=== PATIENT | male | born 1950 | race Caucasian/White ===

== ENCOUNTER 2017-11-14 16:45 | Inpatient (IN) | payer OTHER ==
[~2017-11-14] VITALS: Ht 162.6 cm; Wt 74.3 kg
[~2017-11-14 16:45] MED LIST: ASPI-664 PO; ATOR20TA38 PO; CARV12.598 PO; Lisinopril PO; TICA90TA PO
[2017-11-14] MEDS ORDERED: FURO20TA3 PO (23:54)
--- NOTE | 2017-11-15 00:04 | RADRPT ---
PROCEDURE: XR Chest. CLINICAL INDICATION: Chest Pain. TECHNIQUE: Single frontal view of the chest was obtained. COMPARISON: 12/10/2014 FINDINGS: The cardiomediastinal silhouette is normal size. Pulmonary vasculature is within normal limits. Th ere is moderate aortic calcification. There is atelectasis or scarring at the left lung base.. No signs of pleural fluid or pneumothorax are seen. The osseous structures and soft tissues are unre markable. IMPRESSION: Moderate aortic calcification. Atelectasis or scarring at the left lung base. No focal consolidation or edema. RPTAT: HBST .Dylon Ly MD, MD Date Time Electronically viewed and signed by .Dylon Ly MD, on 11/15/2017 00:04 .T/
[2017-11-15 00:31] LABS: BASOPHILS % 0.6 % (0.0-2.0); EOSINOPHILS # 0.2 10^3/ul (0.0-0.5); EOSINOPHILS % 3.2 % (0.0-7.0); HEMATOCRIT 47.9 % (42.0-52.0); HEMOGLOBIN 16.2 g/dl (14.0-18.0); LYMPHOCYTES # 1.4 10^3/ul (0.8-2.9); LYMPHOCYTES % 27.1 % (15.0-51.0); MEAN CORPUSCULAR HEMOGLOBIN 30.6 pg (29.0-33.0); MEAN CORPUSCULAR HGB CONC 33.8 g/dl (32.0-37.0); MEAN CORPUSCULAR VOLUME 90.4 fl (82.0-101.0); MONOCYTE # 0.7 10^3/ul (0.3-0.9); MONOCYTES % 13.3 % (0.0-11.0); NEUTROPHIL # 2.8 10^3/ul (1.6-7.5); NEUTROPHILS % 55.6 % (39.0-77.0); PLATELET COUNT 217 10^3/UL (140-415); RED CELL DISTRIBUTION WIDTH 13.7 % (11.5-14.5)
[2017-11-15 00:46] LABS: ADD UMIC YES; UR ASCORBIC ACID NEGATIVE (NEGATIVE); UR BILIRUBIN (Dip) NEGATIVE (NEGATIVE); UR BLOOD (Dip) 1+ mg/dL (NEGATIVE); UR CLARITY CLEAR (CLEAR); UR COLOR YELLOW (YELLOW); UR GLUCOSE (Dip) 1+ mg/dL (NEGATIVE); UR KETONES (Dip) TRACE mg/dL (NEGATIVE); UR LEUKOCYTE ESTERASE (Dip) NEGATIVE Leu/ul (NEGATIVE); UR MUCUS FEW /HPF (NONE SEEN); UR NITRITE (Dip) NEGATIVE (NEGATIVE); UR RBC 2 /HPF (0-5); UR TOTAL PROTEIN (Dip) 3+ mg/dl (NEGATIVE); UR UROBILINOGEN (Dip) NEGATIVE (NEGATIVE)
[2017-11-15 00:55] LABS: ALBUMIN/GLOBULIN RATIO 0.62; BILIRUBIN,INDIRECT 0.3 mg/dl (0-1.1); BILIRUBIN,TOTAL 0.3 mg/dl (0.2-1.3); CREATININE 1.05 mg/dl (0.61-1.24); POTASSIUM 3.8 mmol/L (3.5-5.1); TOTAL PROTEIN 5.2 g/dl (6.1-8.1)
--- NOTE | 2017-11-15 01:13 | RADRPT ---
PROCEDURE: ULTRASOUND RETROPERITONEUM CLINICAL INDICATION: 67-year-old male with proteinuria. TECHNIQUE: Multiple sonographic images of the retroperitoneum were obtained. The images were revi ewed on a PACS workstation. COMPARISON: None. FINDINGS: The kidneys are well visualized. The right kidney measures 10.8 x 5.1 x 5.0 cm. The left kidney ted ures 12.1 x 5.8 x 5.2 cm. There is a echogenic right renal calculus measuring 5 mm. There are multip le echogenic left renal calculi with the largest measuring 6 mm. There is no evidence for obstructiv e uropathy. The bladder is without internal echoes or shadowing stones. IMPRESSION: 1. No sonographic evidence for obstructive uropathy. 2. Bilateral renal calculi. .Alexandru Garner MD, Date Time Electronically viewed and signed by .Alexandru Garner MD, MD on 11/15/2017 01:12 .M/
[2017-11-15] MEDS ORDERED: ONDANSETRON 4 MG INJ IV PRN (02:30)
[2017-11-15] MEDS ORDERED: ACETAMINOPHEN 325 MG TAB PO PRN (02:30)
--- NOTE | 2017-11-15 03:57 | ERD ---
ER Documentation Chief Complaint Chief Complaint Sent from for eval nephrotic syndrome HPI This 67-year-old male presents emergency room for significant swelling of his arms legs scrotum and abdomen going on for the last month. He previously had no renal abnormalities. He went to his PCP today who noticed protein in the urine and sent him in for rule out of nephrotic syndrome. Patient states it is harder to walk because of his swelling in his legs. Has no shortness of breath , chest pain, fevers or chills. He does not have any burning on urination. ROS All systems reviewed and are negative except as per history of present illness. Medications Home Meds Active Scripts Aspirin* (Aspirin* EC) 81 Mg Tabec, 81 MG PO DAILY for 30 Days Prov:ALLEGRA LACKEY NP 12/12/14 Carvedilol* (Coreg*) 12.5 Mg Tab, 12.5 MG PO Q12 for 30 Days HOLD FOR HR<60 AND/OR SBP<110 Prov:ALLEGRA LACKEY NP 12/12/14 Atorvastatin Calcium* (Atorvastatin Calcium*) 20 Mg Tab, 80 MG PO QHS for 30 Days Prov:ALLEGRA LACKEY NP 12/12/14 Reported Medications Furosemide* (Furosemide*) 20 Mg Tablet, 20 MG PO DAILY, #60 TAB 11/14/17 Discontinued Scripts Ticagrelor* (Brilinta*) 90 Mg Tablet, 90 MG PO BID for 30 Days Prov:ALLEGRA LACKEY NP 12/12/14 [Lisinopril] 10 MG TAB No Conflict Check, 10 MG PO DAILY for 30 Days, TAB HOLD FOR SBP<110 Prov:ALLEGRA LACKEY NP 12/12/14 Allergies Allergies: Coded Allergies: No Known Allergy (Unverified , 11/14/17) PMhx/Soc History of Surgery: Yes (heart stent, ) Anesthesia Reaction: No Hx Neurological Disorder: No Hx Respiratory Disorders: No Hx Cardiac Disorders: Yes (htn, chf, high cholesterol) Hx Psychiatric Problems: No Hx Miscellaneous Medical Probl: No Hx Alcohol Use: No Hx Substance Use: No Hx Tobacco Use: No Smoking Status: Never smoker Physical Exam Vitals Vital Signs Date Time Temp Pulse Resp B/P Pulse Ox O2 Delivery O2 Flow Rate FiO2 11/15/17 01:02 70 16 103/60 95 Room Air 11/14/17 21:26 97.4 94 16 150/93 94 Room Air 11/14/17 16:49 98.4 92 20 113/74 95 Physical Exam Const: [] Mild distress Head: Atraumatic Eyes: Normal Conjunctiva ENT: Normal External Ears, Nose and Mouth. Neck: Full range of motion..~ No meningismus. Resp: Clear to auscultation bilaterally Cardio: Regular rate and rhythm, no murmurs Abd: Soft, non tender, non distended. Normal bowel sounds Skin: No petechiae or rashes Back: No midline or flank tenderness Ext: No cyanosis, plus pitting edema bilateral lower extremities up to the level of the knee as well as pitting edema of the scrotum and penis, no tenderness of scrotum or penis. Swelling of hands. Distal pulses are intact with good capillary refill. Neur: Awake and alert oriented 3, no focal deficits Psych: Normal Mood and Affect Result Diagram: 11/14/17 2350 11/14/17 2350 Results 24 hrs Laboratory Tests Test 11/14/17 23:50 11/15/17 00:15 White Blood Count 5.010^3/ul Red Blood Count 5.3010^6/ul Hemoglobin 16.2g/dl Hematocrit 47.9% Mean Corpuscular Volume 90.4fl Mean Corpuscular Hemoglobin 30.6pg Mean Corpuscular Hemoglobin Concent 33.8g/dl Red Cell Distribution Width 13.7% Platelet Count 06177^3/UL Mean Platelet Volume 11.0fl Neutrophils % 55.6% Lymphocytes % 27.1% Monocytes % 13.3% Eosinophils % 3.2% Basophils % 0.6% Nucleated Red Blood Cells % 0.0/100WBC Neutrophils # 2.810^3/ul Lymphocytes # 1.410^3/ul Monocytes # 0.710^3/ul Eosinophils # 0.210^3/ul Basophils # 0.010^3/ul Nucleated Red Blood Cells # 0.010^3/ul Sodium Level 137mmol/L Potassium Level 3.8mmol/L Chloride Level 107mmol/L Carbon Dioxide Level 27mmol/L Anion Gap 7 Blood Urea Nitrogen 23mg/dl Creatinine 1.05mg/dl Glucose Level 163mg/dl Calcium Level 8.0mg/dl Total Bilirubin 0.3mg/dl Direct Bilirubin 0.00mg/dl Indirect Bilirubin 0.3mg/dl Aspartate Amino Transf (AST/SGOT) 24IU/L Alanine Aminotransferase (ALT/SGPT) 27IU/L Alkaline Phosphatase 164IU/L B-Type Natriuretic Peptide 146PG/ML Total Protein 5.2g/dl Albumin 2.0g/dl Globulin 3.20g/dl Albumin/Globulin Ratio 0.62 Urine Color YELLOW Urine Clarity CLEAR Urine pH 5.0 Urine Specific [place] 1.030 Urine Ketones TRACEmg/dL Urine Nitrite NEGATIVEmg/dL Urine Bilirubin NEGATIVEmg/dL Urine Urobilinogen NEGATIVEmg/dL Urine Leukocyte Esterase NEGATIVELeu/ul Urine Microscopic RBC 2/HPF Urine Microscopic WBC 3/HPF Urine Mucus FEW/HPF Urine Hemoglobin 1+mg/dL Urine Glucose 1+mg/dL Urine Total Protein 3+mg/dl Current Medications Medications (Trade) Dose Ordered Sig/Miguel Angel Route PRN Reason Start Time Stop Time Status Last Admin Dose Admin Ondansetron HCl (Zofran Inj) 4 mg BRIDGE ORDER PRN IV NAUSEA AND/OR VOMITING 11/15/17 02:30 11/16/17 02:29 Acetaminophen (Tylenol Tab) 650 mg ER BRIDGE PRN PO MILD PAIN/FEVER 11/15/17 02:30 11/16/17 02:29 Procedures/MDM Elderly male with new onset nephrotic syndrome with no evidence of infection. He also has severe protein protein calorie malnutrition as a result of albumin loss in his urine. Evidence of renal failure or congestive heart failure. So has limited mobility secondary to severe pitting edema. Bilateral renal ultrasound does not reveal any pathology. Patient will need to be admitted for nephrology workup for underlying cause of nephrotic syndrome and treatment as his albumin is very low and he will continue to third space fluids this condition will continue to worsen. Spoke with Dr. Fox will be admitting him to the medical surgical floor for this evaluation. EKG interpretation: Normal sinus rhythm rate of 81, normal axis, no ST or T- wave changes concerning for acute ischemia, normal intervals. Normal EKG X-ray interpretation: I see no acute process, I see no pulmonary edema, no infiltrates, pneumothorax, no fractures. Renal ultrasound interpretation: Renal calculi without hydronephrosis or evidence of obstruction, no abnormalities in appearance of renal parenchyma that I can see. Departure Diagnosis: Primary Impression: Nephrotic syndrome Additional Impressions: Severe protein-calorie malnutrition Anasarca Condition: Serious JOSHUATKMARIAAASIF OZUNA Nov 15, 2017 03:57
[2017-11-15] MEDS ORDERED: FUROSEMIDE 40 MG INJ IV ONE (04:30)
[2017-11-15] MEDS ORDERED: NACL 0.9% 3 ML SYG IV SCH (04:30)
[2017-11-15 05:42] LABS: HAAIG REFLEX REFLEX FILED
[2017-11-15 06:22] LABS: URIC ACID 5.9 mg/dl (3.1-7.9)
[2017-11-15 07:06] LABS: HEPATITIS B CORE ANTIBODY REACTIVE (NEGATIVE)
--- NOTE | 2017-11-15 07:16 | RADRPT ---
PROCEDURE: US Abdomen (right upper quadrant). CLINICAL INDICATION: Elevated liver enzymes TECHNIQUE: Multiple real-time longitudinal and transverse images of the right upper quadrant of th e abdomen were acquired utilizing a curved array transducer. Images were reviewed on a high-resoluti on PACS workstation. COMPARISON: US ABDOMEN 11/15/2017 FINDINGS: The liver is normal in size and echogenicity without focal mass or intrahepatic biliary dilatation. There is normal hepatopedal flow within the main portal vein. The gallbladder is normal. There is no pericholecystic fluid or gallbladder wall thickening or gallstones. No intra or extrahepatic lilia iary dilatation is seen. The common bile duct measures 4.1 mm in maximal dimension. The pancreas i s not well visualized. No free fluid is identified. The right kidney measures 10.2 cm in length. There is normal echogenicity within the right kidney. There is mild hydronephrosis. Two calculi are again demonstrated, the larger measuring 5 mm. IMPRESSION: Right renal calculi and mild hydronephrosis. Normal sonographic appearance of the liver. RPTAT: HCNS Physician Brittany Date Time Electronically viewed and signed by Physician Brittany on 11/15/2017 07:15 /
--- NOTE | 2017-11-15 09:58 | HP ---
Date/Time of Note Date/Time of Note DATE: 11/15/17 TIME: 09:50 Assessment/Plan VTE Prophylaxis VTE Prophylaxis Intervention: SCD's Lines/Catheters [facility] Saline Lock Assessment/Plan Chief Complaint/Hosp Course This is a 67-year-old male being [facility] floor for: #1 diffuse nonpitting edema: While creatinine is within normal values urinalysis does show 3+ protein. Which is concerning for possible nephrotic syndrome. At the current time will order renal ultrasound. Will order urine studies. Will check a NILDA, will check hepatitis panel. Will order urine microscope. Will also check an echocardiogram in the setting of the patient having a mildly elevated BNP. Will consult nephrology, consider cardiology if indicated. Will give a dose of Lasix 40 Iv 1. Will monitor urine output, will check a cortisol level #2 Elevated BNP: Patient has a mildly elevated BNP level, will check an echocardiogram as per 1. Patient does not have any shortness of breath at this time. #3 elevated alkaline phosphatase: Patient denies any right upper quadrant pain. Will check right upper quadrant ultrasound. Will check a GGT level, will check a hepatitis panel. #4 coronary artery disease: Patient has a history of NC status post stent. Will continue aspirin/statin/carvedilol. #5 hypertension: Patient currently is not on any blood pressure medications. He was previously on lisinopril however patient did not tolerate this medication well. Will continue monitor blood pressures #6 DVT GI prophylaxis: SCDs, no GI prophylaxis indicated Further treatment strategy will be provided as per the clinical course Problems: HPI/ROS Admit Date/Time Admit Date/Time Hx of Present Illness Chief complaint: Swelling of the bilateral hands and feet and scrotum This 67-year-old male presents emergency room for significant swelling of his arms legs scrotum and abdomen going on for the last month. He previously had no renal abnormalities. He went to his PCP today who noticed protein in the urine and sent him in for rule out of nephrotic syndrome. Patient states it is harder to walk because of his swelling in his legs. Has no shortness of breath , chest pain, fevers or chills. He does not have any burning on urination. He was started on Lasix by his primary care doctor however he has not noticed any improvement with that. He is still able to urinate. He does report that he was started on lisinopril in the past however he did not tolerate the medication well and therefore is not taking it at this time. Allergies: NKDA Medications: See PACHECO MUSTAFA Const: As per HPI Eyes : No pain discharge or redness or change in visual acuity ENT: No pain, sore throat, congestion, congestion, dysphagia or discharge Respiratory: No shortness of breath, cough, sputum, wheezing, or pleuritic pain Cardiovascular: No chest pain, palpitation, PND, or edema GI : no change in appetite, abdominal pain, nausea, vomiting, diarrhea, constipation, or change in the color his stool Genitourinary: As per HPI Musculoskeletal: No joint pain, back pain, neck pain, restricted range of motion in neck or joints Skin: Per HPI Neuro: No headache, dizziness, syncope, seizure, focal weakness Endocrine: No polyuria, polydipsia, temperature intolerance Psych: No hallucination, depression, anxiety or suicidal ideation PMH/Family/Social Past Medical History Coronary artery disease, NC, hypertension Past Surgical History History of cardiac stent 1 Family History Significant Family History: no pertinent family hx Social History Alcohol Use: none Smoking Status: Never smoker Drug Use: marijuana Exam/Review of Systems Vital Signs Vitals Vital Signs Date Time Temp Pulse Resp B/P Pulse Ox O2 Delivery O2 Flow Rate FiO2 11/15/17 09:00 98.3 74 20 118/74 98 Room Air Exam Exam General: She is lying comfortably in bed in no acute distress HEENT: Atraumatic, normocephalic. The pupils are equal, round and reactive. Extraocular motor are intact Neck: Supple with full range of motion. No rigidity or meningismus Chest: Nontender Lungs: Clear to auscultation bilaterally no crackles rales or wheezing Heart: Normal S1-S2, Regular rhythm and rate. No murmur, S3, or S4 Abdomen: Soft , nontender, nondistended , bowel sounds are present. No guarding no rebound tenderness , No masses or organomegaly. No costovertebral temporal angle mass Genitourinary: Scrotal and penile swelling Extremities: Nonpitting edema of the bilateral hands, of the bilateral feet to the level of the zelaya Neurologic: Normal mental status, speech normal, cranial nerves II through XII are intact, motor and sensory are intact, no focal weakness Skin: Nonpitting edema of the bilateral hands, of the bilateral feet, of the penis and scrotum Additional Comments PROCEDURE: XR Chest. CLINICAL INDICATION: Chest Pain. TECHNIQUE: Single frontal view of the chest was obtained. COMPARISON: 12/10/2014 FINDINGS: The cardiomediastinal silhouette is normal size. Pulmonary vasculature is within normal limits. There is moderate aortic calcification. There is atelectasis or scarring at the left lung base.. No signs of pleural fluid or pneumothorax are seen. The osseous structures and soft tissues are unremarkable. IMPRESSION: Moderate aortic calcification. Atelectasis or scarring at the left lung base. No focal consolidation or edema. RPTAT: HBST .Dylon Ly MD, Date Time Electronically viewed and signed by .Dylon Ly MD, MD on 11/15/2017 00:04 .T/ CC: MARIAA LEWIS DO PROCEDURE: ULTRASOUND RETROPERITONEUM CLINICAL INDICATION: 67-year-old male with proteinuria. TECHNIQUE: Multiple sonographic images of the retroperitoneum were obtained. The images were reviewed on a PACS workstation. COMPARISON: None. FINDINGS: The kidneys are well visualized. The right kidney measures 10.8 x 5.1 x 5.0 cm. The left kidney measures 12.1 x 5.8 x 5.2 cm. There is a echogenic right renal calculus measuring 5 mm. There are multiple echogenic left renal calculi with the largest measuring 6 mm. There is no evidence for obstructive uropathy. The bladder is without internal echoes or shadowing stones. IMPRESSION: 1. No sonographic evidence for obstructive uropathy. 2. Bilateral renal calculi. .Alexandru Garner MD, Date Time Electronically viewed and signed by .Alexandru Garner MD, MD on 11/15/2017 01:12 .M/ CC: MARIAA LEWIS DO Labs Result Diagram: 11/14/17234911/14/17 235 Medications Medications Current Medications Acetaminophen (Tylenol Tab) 650 mg Q6H PRN PO PAIN LEVEL 1-3 OR FEVER; Start 11/15/17 at 04:30 MARIA GUADALUPE SOLER Nov 15, 2017 09:58
[2017-11-15 11:30] VITALS: TEMP 98.3
[2017-11-15 11:57] VITALS: BP 132/74; PULSE 77; RESP 12; Ht 162.6 cm; Wt 74.3 kg
[2017-11-15] MEDS: ACETAMINOPHEN 325 MG TAB PO PRN (15:05)
--- NOTE | 2017-11-15 15:28 | CONS ---
DATE OF ADMISSION: 11/15/2017 DATE OF CONSULTATION: 11/15/2017 TYPE OF CONSULTATION: Nephrology. REASON FOR CONSULTATION: Volume overloaded, proteinuria, evaluate for possible nephrotic syndrome. HISTORY OF PRESENT ILLNESS: This is a 67-year-old male with a past medical history of hypertension, history of dyslipidemia, history of CHF, history of coronary artery disease, who presents to [facility] for evaluation of worsening lower extremity edema. The patient stated that h is symptoms began approximately 1 month ago when he started having noted swelling. The patient was seen by his primary care physician, who was concerned for possible nephrotic syndrome and recommende d the patient come to the emergency room. Upon arrival to the emergency room, the patient had labor atory data drawn, which showed urinalysis, +3 proteinuria. The patient also had a BUN of 23, creati nine 1.05. In the emergency room, the patient was given diuretic therapy. In terms of the patient's renal history, the patient states that he has had normal renal function, h as had no prior history of swelling. The patient states that he may have developed a rash approxima tely 1 month ago. He denies any NSAID use. Denies any gross hematuria, any hemoptysis. The patien t also states that he was noted to have frothy urine over the past several weeks. PAST MEDICAL HISTORY: As stated above, history of coronary artery disease, history of CHF, history of hypertension. PAST SURGICAL HISTORY: Status post cardiac catheterization. FAMILY HISTORY: Noncontributory. SOCIAL HISTORY: Does not drink, smoke, or do drugs. OUTPATIENT MEDICATIONS: Reviewed. REVIEW OF SYSTEMS: A 14-point review of systems was conducted. Pertinent positives stated in HPI, otherwise negative. PHYSICAL EXAMINATION: VITAL SIGNS: Blood pressure is 115/73, respiration is 16, pulse 77, temperature 97.4. HEENT: Head is normocephalic. NECK: Supple. HEART: Regular rate. LUNGS: Show diminished breath sounds at base. ABDOMEN: Soft, nontender to palpation without rebound or guarding. EXTREMITIES: Negative for clubbing, cyanosis. Positive edema bilaterally. Diffuse anasarca. DERMATOLOGIC: No rashes. MUSCULOSKELETAL: No joint effusions. NEUROLOGIC: No focal deficits. LABORATORY DATA: Shows sodium 137, potassium 3.8, chloride 107, BUN 23. White count 5.0, hemoglobi n 16.2, platelet count 217. IMAGING STUDIES: The patient's renal ultrasound shows no evidence of obstructive uropathy. Bilater al renal calculi noted. Liver ultrasound shows normal appearance of the liver. ASSESSMENT AND PLAN: This is a 67-year-old male who presents with: 1. Volume overload, anasarca. Etiology is unclear. Differential is broad, including decompensated congestive heart failure. The possibility of nephrotic syndrome is a consideration. Plan at this p oint is to do a full evaluation by checking a UA with microanalysis. Will quantify the patient's pr oteinuria by checking a protein/creatinine ratio and albumin/creatinine ratio. We will also check a n SPEP, UPEP, immunofixation. Agree with diuretic therapy. Monitor renal function closely. If the patient does have evidence of nephrotic range proteinuria, possibilities such as a primary FSGS, me mbranous nephropathy, MPGN will all be considerations. The patient may also require a renal biopsy if the serological data and proteinuria are consistent with nephrotic syndrome. Will monitor closel y with you. 2. History of congestive heart failure. The patient may have underlying exacerbation. Will check a 2D echo. Continue diuretic therapy. 3. Coronary artery disease. Continue medical management. 4. Hypertension. Continue current blood pressure regimen. 5. Dyslipidemia. Continue statin therapy. Thank you, Dr. Soler, for this interesting consultation. It will be a pleasure to follow patient with you throughout the hospital course. Dictated By: MAEGAN BLACK DO NR/NTS Conf#: [id number] DID#: [id number] CC: MARIA GUADALUPE SOLER MD;*EndCC*
[2017-11-15 16:02] LABS: ADD UMIC YES; UR ASCORBIC ACID NEGATIVE (NEGATIVE); UR BACTERIA FEW /HPF (NONE SEEN); UR BILIRUBIN (Dip) NEGATIVE (NEGATIVE); UR BLOOD (Dip) NEGATIVE (NEGATIVE); UR CLARITY SLIGHTLY CLOUDY (CLEAR); UR COLOR YELLOW (YELLOW); UR GLUCOSE (Dip) NEGATIVE (NEGATIVE); UR KETONES (Dip) NEGATIVE (NEGATIVE); UR LEUKOCYTE ESTERASE (Dip) NEGATIVE Leu/ul (NEGATIVE); UR MUCUS FEW /HPF (NONE SEEN); UR NITRITE (Dip) NEGATIVE (NEGATIVE); UR RBC 2 /HPF (0-5); UR SPECIFIC GRAVITY (Dip) 1.018 (1.003-1.030); UR TOTAL PROTEIN (Dip) 3+ mg/dl (NEGATIVE); UR UROBILINOGEN (Dip) 1+ mg/dL (NEGATIVE)
--- NOTE | 2017-11-15 16:18 | PN ---
Date/Time of Note Date/Time of Note DATE: 11/15/17 TIME: 16:10 Assessment/Plan VTE Prophylaxis VTE Prophylaxis Intervention: SCD's Lines/Catheters IV Catheter Type (from Nrsg): Saline Lock Assessment/Plan Assessment/Plan 67 yo M with hx HTN presents with anasarca, proteinuria. etio unclear. also unclear if proteinuria nephrotic range or not at this time PLAN appreciate renal assistance. urine protein/creatinine pending renal imaging and liver imaging unremarkable will check LE dopplers to r/o DVT though unlikely cont lasix reasonable to cont home asa, statin, bb agree with TTE Subjective 24 Hr Interval Summary Free Text/Dictation wants to know when he can go home. states he's been swollen for 4 weeks. doesnt think his urine has been foamy Exam/Review of Systems Vital Signs Vitals Vital Signs Date Time Temp Pulse Resp B/P Pulse Ox O2 Delivery O2 Flow Rate FiO2 11/15/17 11:57 97.8 77 12 132/74 96 Room Air Exam nad no mrg lungs clear anteriorly abd soft no rashes +edema labs noted, +proteinuria with nl Cr, hgb ok, HepC neg, HepB cw previous most likely clear infection Results Result Diagram: 11/14/17 2350 11/14/17 2350 Results 24 hrs Laboratory Tests Test 11/14/17 23:50 11/15/17 00:15 11/15/17 05:31 11/15/17 05:32 White Blood Count 5.0 # Red Blood Count 5.30 Hemoglobin 16.2 Hematocrit 47.9 Mean Corpuscular Volume 90.4 Mean Corpuscular Hemoglobin 30.6 Mean Corpuscular Hemoglobin Concent 33.8 Red Cell Distribution Width 13.7 Platelet Count 217 Mean Platelet Volume 11.0 #H Neutrophils % 55.6 Lymphocytes % 27.1 Monocytes % 13.3 H Eosinophils % 3.2 Basophils % 0.6 Nucleated Red Blood Cells % 0.0 Neutrophils # 2.8 Lymphocytes # 1.4 Monocytes # 0.7 Eosinophils # 0.2 Basophils # 0.0 Nucleated Red Blood Cells # 0.0 Sodium Level 137 Potassium Level 3.8 Chloride Level 107 Carbon Dioxide Level 27 Anion Gap 7 L Blood Urea Nitrogen 23 H Creatinine 1.05 Glucose Level 163 Calcium Level 8.0 L Total Bilirubin 0.3 Direct Bilirubin 0.00 Indirect Bilirubin 0.3 Aspartate Amino Transf (AST/SGOT) 24 Alanine Aminotransferase (ALT/SGPT) 27 Alkaline Phosphatase 164 H B-Type Natriuretic Peptide 146 H Total Protein 5.2 L Albumin 2.0 L Globulin 3.20 Albumin/Globulin Ratio 0.62 Urine Color YELLOW Urine Clarity CLEAR Urine pH 5.0 Urine Specific [place] 1.030 Urine Ketones TRACE A Urine Nitrite NEGATIVE Urine Bilirubin NEGATIVE Urine Urobilinogen NEGATIVE Urine Leukocyte Esterase NEGATIVE Urine Microscopic RBC 2 Urine Microscopic WBC 3 Urine Mucus FEW A Urine Hemoglobin 1+ H Urine Glucose 1+ H Urine Total Protein 3+ H Hepatitis B Surface Antibody POSITIVE H Uric Acid 5.9 Gamma Glutamyl Transpeptidase 52 H Random Cortisol 5.1 Hepatitis B Surface Antigen NEGATIVE Hepatitis B Core Total Antibody REACTIVE H Hepatitis C Antibody NEGATIVE Test 11/15/17 15:03 Urine Color YELLOW Urine Clarity SLIGHTLY CLOUDY A Urine pH 7.0 Urine Specific [place] 1.018 Urine Ketones NEGATIVE Urine Nitrite NEGATIVE Urine Bilirubin NEGATIVE Urine Urobilinogen 1+ H Urine Leukocyte Esterase NEGATIVE Urine Microscopic RBC 2 Urine Microscopic WBC 4 Urine Bacteria FEW A Urine Mucus FEW A Urine Hemoglobin NEGATIVE Urine Glucose NEGATIVE Urine Total Protein 3+ H Medications Medications Current Medications Acetaminophen (Tylenol Tab) 650 mg Q6H PRN PO PAIN LEVEL 1-3 OR FEVER Last administered on 11/15/17t 15:05; Admin Dose 650 MG; Start 11/15/17 at 04:30 Aspirin (Halfprin) 81 mg DAILY PO ; Start 11/16/17 at 09:00 Atorvastatin Calcium (Lipitor) 80 mg QHS PO ; Start 11/15/17 at 21:00 Carvedilol (Coreg) 12.5 mg Q12 PO ; Start 11/15/17 at 21:00 APPLE SAMANIEGO MD Nov 15, 2017 16:18
[2017-11-15 19:14] VITALS: BP 107/66; PULSE 77; RESP 12
[2017-11-15] MEDS: ATORVASTATIN 80 MG TAB PO SCH (21:00)
[2017-11-15 21:22] VITALS: BP 112/71; PULSE 77; RESP 12
[2017-11-15 23:00] VITALS: BP 118/75; RESP 18
[2017-11-16 02:07] VITALS: BP 104/63; RESP 18
[2017-11-16 06:38] LABS: BASOPHILS % 0.7 % (0.0-2.0); EOSINOPHILS # 0.2 10^3/ul (0.0-0.5); EOSINOPHILS % 4.7 % (0.0-7.0); HEMATOCRIT 44.4 % (42.0-52.0); HEMOGLOBIN 14.7 g/dl (14.0-18.0); LYMPHOCYTES # 1.1 10^3/ul (0.8-2.9); LYMPHOCYTES % 23.7 % (15.0-51.0); MEAN CORPUSCULAR HEMOGLOBIN 30.7 pg (29.0-33.0); MEAN CORPUSCULAR HGB CONC 33.1 g/dl (32.0-37.0); MEAN CORPUSCULAR VOLUME 92.7 fl (82.0-101.0); MEAN PLATELET VOLUME 10.8 fl (7.4-10.4); MONOCYTE # 0.6 10^3/ul (0.3-0.9); MONOCYTES % 12.2 % (0.0-11.0); NEUTROPHIL # 2.7 10^3/ul (1.6-7.5); NEUTROPHILS % 58.7 % (39.0-77.0); PLATELET COUNT 189 10^3/UL (140-415); RED BLOOD COUNT 4.79 10^6/ul (4.70-6.10); RED CELL DISTRIBUTION WIDTH 13.7 % (11.5-14.5); WHITE BLOOD COUNT 4.5 10^3/ul (4.8-10.8)
[2017-11-16 06:49] LABS: ALBUMIN 1.5 g/dl (3.3-4.9); ALBUMIN/GLOBULIN RATIO 0.62; BILIRUBIN,INDIRECT 0.2 mg/dl (0-1.1); BILIRUBIN,TOTAL 0.2 mg/dl (0.2-1.3); CALCIUM 7.5 mg/dl (8.4-10.2); CHOL/HDL RATIO 7.8 RATIO; CREATININE 1.01 mg/dl (0.61-1.24); MAGNESIUM 1.9 mg/dl (1.7-2.5); PHOSPHORUS 3.6 mg/dl (2.5-4.9); POTASSIUM 4.3 mmol/L (3.5-5.1); TOTAL PROTEIN 3.9 g/dl (6.1-8.1)
[2017-11-16 07:18] LABS: THYROID STIMULATING HORMONE 2.07 MIU/L (0.465-4.680)
[2017-11-16 07:28] VITALS: BP 107/71; RESP 16
--- NOTE | 2017-11-16 07:31 | RADRPT ---
PROCEDURE: Ultrasound of the bilateral lower extremity venous system. CLINICAL INDICATION: Bilateral leg pain and swelling, deep venous thrombosis TECHNIQUE: Schultz scale with and without compression, color doppler, spectral doppler of the venous system of the bilateral lower extremities was performed. Venous augmentation maneuvers were utilized . COMPARISON: No prior studies are available for comparison. FINDINGS: Right: Common femoral vein: Patent. Femoral vein: Patent. Popliteal vein: Patent. Calf veins: Patent. No soft tissue abnormalities are identified. Left: Common femoral vein: Patent. Femoral vein: Patent. Popliteal vein: Patent. Calf veins: Patent. No soft tissue abnormalities are identified. IMPRESSION: No evidence of a deep vein thrombosis within the bilateral lower extremities. RPTAT: AADD .Julio Ruby MD, MD Date Time Electronically viewed and signed by .Julio Ruby MD, on 11/16/2017 07:30 .B/
[2017-11-16] MEDS: FUROSEMIDE 20 MG INJ IV SCH ×2 (09:54→17:40)
[2017-11-16] MEDS: ASPIRIN (EC) 81 MG TAB PO SCH (09:55)
--- NOTE | 2017-11-16 13:39 | PN ---
DATE: 11/16/2017 SUBJECTIVE: The patient is stable. No events overnight. No fevers, chills, nausea, vomiting. Ple ase note I spoke with the patient this morning, discussing the possibility of renal biopsy if the pa tient shows to have nephrotic range proteinuria. Patient voiced understanding. OBJECTIVE: VITAL SIGNS: Blood pressure is 107/71, respirations 16, pulse 74, temperature 97.9. HEENT: Head is normocephalic. NECK: Supple. HEART: Regular rate. LUNGS: Show diminished breath sounds at the base. ABDOMEN: Soft, nontender to palpation without rebound or guarding. EXTREMITIES: Negative for clubbing, cyanosis. Positive edema. DERMATOLOGIC: No rashes. MUSCULOSKELETAL: No joint effusions. NEUROLOGIC: No change in exam. MEDICATIONS: The patient's medications have been reviewed. LABORATORY DATA: Shows sodium 138, potassium 4.3, chloride 107, BUN 29. White count 4.5. The patie nt's urinalysis shows a few bacteria, no hematuria, no pyuria. The patient has a FENa of greater th an 1%. Unable to calculate protein creatinine ratio. The patient's ultrasound of lower extremity s hows no DVT. Renal ultrasound shows no evidence of obstructive uropathy. ASSESSMENT AND PLAN: 1. Volume overload, anasarca. Etiology is concerning for possible nephrotic syndrome. The patient 's spot protein creatinine ratio was unable to be calculated due to underlying proteinuria. Plan is to check a 24-hour urine protein. The patient likely has significant proteinuria. Given the high likelihood the patient has nephrotic range proteinuria, a possibility of a primary FSGS membranous n ephropathy or MPGN are considerations. A serological workup is ongoing. The patient may also requi re a renal biopsy if proteinuria findings are consistent with nephrotic syndrome. Will monitor clos blessing with you. Continue current diuretic regimen. 2. History of congestive heart failure. Continue current medical management. Follow up with 2D ec ho. Consider cardiology evaluation. 3. Coronary artery disease. Continue medical management. 4. Hypertension. Continue current blood pressure regimen. 5. Dyslipidemia. Continue statin therapy. Dictated By: MAEGAN BLACK DO NR/NTS Conf#: [id number] DID#: [id number] CC: MARIA GUADALUPE SOLER MD;*EndCC*
[2017-11-16] MEDS: ACETAMINOPHEN 325 MG TAB PO PRN (13:50)
--- NOTE | 2017-11-16 14:07 | PN ---
Date/Time of Note Date/Time of Note DATE: 11/16/17 TIME: 13:57 Assessment/Plan VTE Prophylaxis VTE Prophylaxis Intervention: SCD's Lines/Catheters [facility] Saline Lock Assessment/Plan Assessment/Plan 67 yo M with hx HTN presents with anasarca, proteinuria. etio unclear. Spot urine p/c consistent with nephrotic range proteinuria PLAN appreciate renal assistance. 24 hour urine collection pending. renal biopsy will likely be needed to make diagnosis check HIV status. HepB seros consistent with previous infection with clearance. Defer NILDA testing to nephrology. cont lasix reasonable to cont home asa, statin, bb await TTE results Subjective 24 Hr Interval Summary Free Text/Dictation feels ok Exam/Review of Systems Vital Signs Vitals Vital Signs Date Time Temp Pulse Resp B/P Pulse Ox O2 Delivery O2 Flow Rate FiO2 11/16/17 07:28 97.9 74 16 107/71 94 11/15/17 21:22 Room Air Intake and Output 11/15/17 11/15/17 11/16/17 15:00 23:00 07:00 Intake Total 500 ml Output Total 200 ml Balance 300 ml Exam nad no mrg lungs clear abd soft no rashes edema of hands/LEs still present a1c 6.1 urine p/c ratio ~10! Results Result Diagram: 11/16/1730 11/16/17 0531 Results 24 hrs Laboratory Tests Test 11/15/17 15:03 11/15/17 15:06 11/16/17 05:30 11/16/17 05:31 Urine Color YELLOW Urine Clarity SLIGHTLY CLOUDY A Urine pH 7.0 Urine Specific [place] 1.018 Urine Ketones NEGATIVE Urine Nitrite NEGATIVE Urine Bilirubin NEGATIVE Urine Urobilinogen 1+ H Urine Leukocyte Esterase NEGATIVE Urine Microscopic RBC 2 Urine Microscopic WBC 4 Urine Bacteria FEW A Urine Mucus FEW A Urine Hemoglobin NEGATIVE Urine Glucose NEGATIVE Urine Total Protein 3+ H Urine Random Creatinine 96.06 Urine Random Sodium 158 H White Blood Count 4.5 L Red Blood Count 4.79 Hemoglobin 14.7 Hematocrit 44.4 Mean Corpuscular Volume 92.7 Mean Corpuscular Hemoglobin 30.7 Mean Corpuscular Hemoglobin Concent 33.1 Red Cell Distribution Width 13.7 Platelet Count 189 Mean Platelet Volume 10.8 H Neutrophils % 58.7 Lymphocytes % 23.7 Monocytes % 12.2 H Eosinophils % 4.7 Basophils % 0.7 Nucleated Red Blood Cells % 0.0 Neutrophils # 2.7 Lymphocytes # 1.1 Monocytes # 0.6 Eosinophils # 0.2 Basophils # 0.0 Nucleated Red Blood Cells # 0.0 Hemoglobin A1c 6.3 H Sodium Level 138 Potassium Level 4.3 Chloride Level 107 Carbon Dioxide Level 31 Anion Gap 4 L Blood Urea Nitrogen 29 H Creatinine 1.01 Glucose Level 117 # Calcium Level 7.5 L Phosphorus Level 3.6 Magnesium Level 1.9 Total Bilirubin 0.2 Direct Bilirubin 0.00 Indirect Bilirubin 0.2 Aspartate Amino Transf (AST/SGOT) 25 Alanine Aminotransferase (ALT/SGPT) 35 Alkaline Phosphatase 122 H Total Protein 3.9 #L Albumin 1.5 L Globulin 2.40 Albumin/Globulin Ratio 0.62 Triglycerides Level 111 Cholesterol Level 242 H LDL Cholesterol, Calculated 189 HDL Cholesterol 31 Cholesterol/HDL Ratio 7.8 Thyroid Stimulating Hormone (TSH) 2.070 Medications Medications Current Medications Acetaminophen (Tylenol Tab) 650 mg Q6H PRN PO PAIN LEVEL 1-3 OR FEVER Last administered on 11/16/17 13:50; Admin Dose 650 MG; Start 11/15/17 at 04:30 Aspirin (Halfprin) 81 mg DAILY PO Last administered on 11/16/17 09:55; Admin Dose 81 MG; Start 11/16/17 at 09:00 Atorvastatin Calcium (Lipitor) 80 mg QHS PO ; Start 11/15/17 at 21:00 Carvedilol (Coreg) 12.5 mg Q12 PO Last administered on 11/16/17 09:55; Admin Dose 12.5 MG; Start 11/15/17 at 21:00 APPLE SAMANIEGO MD Nov 16, 2017 14:07
[2017-11-16 14:18] VITALS: BP 102/66; RESP 18
[2017-11-16] MEDS: ATORVASTATIN 80 MG TAB PO SCH (20:22)
[2017-11-16 20:37] VITALS: BP 104/63; RESP 20
[2017-11-16 22:54] LABS: HAAIG REFLEX REFLEX FILED
[2017-11-16 23:31] LABS: COMPLEMENT C4 27 mg/dl (14-44)
[2017-11-17 00:13] LABS: HEPATITIS B CORE ANTIBODY REACTIVE (NEGATIVE)
[2017-11-17 00:50] LABS: COMPLEMENT C3 116 mg/dl (88-165)
[2017-11-17 02:00] VITALS: BP 111/60; RESP 20
[2017-11-17] MEDS: FUROSEMIDE 20 MG INJ IV SCH ×2 (05:27→17:39)
[2017-11-17 07:30] VITALS: BP 107/66; RESP 20
[2017-11-17] MEDS: ASPIRIN (EC) 81 MG TAB PO SCH (07:42)
--- NOTE | 2017-11-17 11:14 | PN ---
DATE: 11/17/2017 SUBJECTIVE: The patient is stable. Urinary output has been good. The patient is currently is on a 24-hour urine collection. Please note, I did discuss with the patient the possibility of a kidney biopsy due expected nephrotic syndrome. The patient agrees. No other events noted. OBJECTIVE: VITAL SIGNS: Blood pressure is 107/66, respirations 20, pulse 73, temperature 97.9. HEENT: Head is normocephalic. NECK: Supple. HEART: Regular rate. LUNGS: Show diminished breath sounds at the base. ABDOMEN: Soft, nontender to palpation. No rebound or guarding. EXTREMITIES: Negative for clubbing, cyanosis. Positive edema. DERMATOLOGIC: No rashes. MUSCULOSKELETAL: No joint effusion. NEUROLOGIC: No change in exam. MEDICATIONS: The patient's medications have been reviewed. LABORATORY DATA: Shows sodium 138, potassium 4.3, chloride 107, BUN 29, creatinine 1.01, calcium 7. 5. White count 12.5, hemoglobin 14.7, platelet count is 189. Patient's complements within normal l imits. The patient's hepatitis C antibody is negative. Hepatitis B antigen is negative. ASSESSMENT AND PLAN: 1. Nephrotic syndrome. The patient has nephrotic range proteinuria on a spot protein to creatinine ratio. The patient is hypoalbuminemic and has significant edema consistent with nephrotic syndrome . Underlying etiology is unclear, concerning for a primary glomerulopathy such as membranous nephro sergio, focal segmental glomerulosclerosis primary, membranoproliferative glomerulonephritis. Other possibilities including amyloidosis are in consideration. Plan at this point is for a renal biopsy. The patient is currently receiving a 24-hour urine collection. We will also continue current diur etic regimen and adjust medications as needed. Monitor renal function closely. 2. History of congestive heart failure. Will continue medical management and follow up 2D echo. 3. Coronary artery disease. Continue medical management. 4. Hypertension. Continue current blood pressure regimen. 5. Dyslipidemia. Continue statin therapy. 6. Gastrointestinal and deep vein thrombosis prophylaxis. Dictated By: MAEGAN BLACK DO NR/NTS Conf#: [id number] DID#: [id number] CC: MARIA GUADALUPE SOLER MD;*EndCC*
[2017-11-17 13:13] VITALS: BP 101/67; RESP 20
[2017-11-17 13:36] LABS: SCRET 1.01 mg/dl (0.61-1.24)
--- NOTE | 2017-11-17 15:31 | RADRPT ---
Echocardiogram Report Patient Name: LINDSEY HOUSER Gender: Male Date: 1950 Study Date: 16-Nov-2017 [employer] Technician: ANN MARIE Location: 602 Ref. Physician: MARIA GUADALUPE SOLER Quality: Good Procedures: Transthoracic echocardiogram with complete 2D, M-Mode, and doppler examination. Indications: Edema. 2D/M Mode Doppler Measurement Value Normal Ranges Measurement Value Normal Ranges AoR Diam MM 3.1 cm ARUN Vmax 2.6 cm2 LA/Ao MM 1.3 AV Mean Juan Ramon 0.7 m/sec LA Dimen MM 4.0 cm AV Mean PG 2.0 mmHg LVIDd 2D 4.3 3.5 - 5.6 cm AV Peak Juan Ramon 1.0 m/sec LVIDs 2D 3.1 2.1 - 4.1 cm AV Peak PG 4.0 mmHg FS 2D 28.2 % AV VTI 18.0 cm LVPWd 2D 1.0 0.6 - 1.1 cm LVOT Peak Juan Ramon 0.9 m/sec IVSd 2D 0.9 0.6 - 1.1 cm LVOT Peak PG 3.0 mmHg IVS/LVPW 2D 1.0 MV E Peak Juan Ramon 0.7 m/sec EDV 2D 77.3 cm3 MV A Peak Juan Ramon 0.8 m/sec ESV 2D 28.7 cm3 MV E/A 0.8 EF 2D 55.0 50.0 - 65.0 % MV Decel Time 183 msec LVOT Diam 1.9 cm MV E/A 0.8 LVOT Area 2.8 cm2 MR Peak PG 52.0 mmHg MR Peak Juan Ramon 3.6 m/sec TR Peak Juan Ramon 2.3 m/sec TR Peak PG 22.0 mmHg RVSP 25.0 mmHg RA Pressure 3.0 Findings Left Ventricle: Lower limits of normal systolic function. Normal left ventricular cavity size. Normal left ventricular wall thickness. Ejection fraction is visually estimated at 5055 %. Tissue Doppler/Mitral Doppler indices are consistent with impaired relaxation (Stage I diastolic dysfunction). Right Ventricle: Normal right ventricular size. Normal right ventricular systolic function. Left Atrium: Upper limit of normal left atrial size. Right Atrium: The right atrium is normal in size. Mitral Valve: Normal appearance of the mitral valve. There is trace to mild mitral valve regurgitation. Aortic Valve: Normal appearance of the aortic valve. No significant aortic stenosis with trivial insufficiency. Tricuspid Valve: Normal appearance of the tricuspid valve. Normal right ventricular systolic pressure. Estimated peak PA systolic pressure 25 mmHg. There is trace tricuspid regurgitation. Pericardium: Normal pericardium with no significant pericardial effusion. Aorta: Normal aortic root. IVC: Normal size and normal respiratory collapse visually consistent with normal right atrial pressure. Conclusions 1.Lower limits of normal systolic function. Normal left ventricular cavity size. Normal left ventricular wall thickness. Ejection fraction is visually estimated at 5055 %. Tissue Doppler/Mitral Doppler indices are consistent with impaired relaxation (Stage I diastolic dysfunction). 2.Normal appearance of the mitral valve. There is trace to mild mitral valve regurgitation. 3.Normal appearance of the aortic valve. No significant aortic stenosis with trivial insufficiency. 4.Normal appearance of the tricuspid valve. Normal right ventricular systolic pressure. Estimated peak PA systolic pressure 25 mmHg. There is trace tricuspid regurgitation. Electronically Signed By: Wagner Garcia 17-Nov-2017 15:30:58 -0800 Patient Name: LINDSEY HOUSER Study Date: 16-Nov-2017 [id number]
--- NOTE | 2017-11-17 16:01 | PN ---
Date/Time of Note Date/Time of Note DATE: 11/17/17 TIME: 15:59 Assessment/Plan VTE Prophylaxis VTE Prophylaxis Intervention: SCD's Lines/Catheters [facility] Saline Lock Urinary Cath still in place: No Assessment/Plan Assessment/Plan 67-year-old male with: 1. Diffuse anasarca, suspected nephrotic syndrome, hepatitis B positive 24 hour urine collection was completed today, this was sent to the lab for measurement of proteinuria Patient may need renal biopsy if patient has significant proteinuria on 24-hour urine collection Continue diuretics, monitor renal function Follow-up 2D echo results Doppler lower extremity negative for DVT, renal and liver ultrasound fairly unremarkable. Follow-up further nephrology recommendations from Dr. Culver 2. Coronary artery disease, status post stenting 3 years ago, continue current medications including statin therapy, carvedilol and patient also has been on aspirin. However if needed renal biopsy may need to hold aspirin. Prophylaxis: Patient tolerating p.o., should be ambulatory. Otherwise SCDs for DVT prophylaxis Disposition: Follow-up recommendations from Dr. Culver in a.m., likely patient may need renal biopsy is 24 hour urine collection confirm significant proteinuria. Subjective 24 Hr Interval Summary Free Text/Dictation Patient is doing fairly well, he remains stable, he still has significant anasarca but improved since admission according to the patient. Patient currently being worked up for nephrotic syndrome. Exam/Review of Systems Vital Signs Vitals Vital Signs Date Time Temp Pulse Resp B/P Pulse Ox O2 Delivery O2 Flow Rate FiO2 11/17/17 13:13 98.4 83 20 101/67 94 11/15/17 21:22 Room Air Intake and Output 11/16/17 11/16/17 11/17/17 15:00 23:00 07:00 Intake Total 620 ml 960 ml 600 ml Output Total 1080 ml 1750 ml Balance 620 ml -120 ml -1150 ml Exam Constitutional: alert, oriented, well developed Respiratory: clear to auscultation, normal air movement Cardiovascular: nl pulses, regular rate and rhythm Gastrointestinal: non-tender, soft Musculoskeletal: swelling (Diffuse, anasarca) Extremities: edema (Past 3-4 lower extremities, +1-2 pelvic and upper extremities), normal pulses Neurological: CLINICAL QUALITY ASSURANCE ASSOCIATE II-XII intact, nl mental status, nl speech, nl strength Results Result Diagram: 11/16/17 0530 11/16/17 0531 Results 24 hrs Laboratory Tests Test 11/16/17 22:42 11/17/17 10:00 Complement C3 116 Complement C4 27 Hepatitis B Surface Antigen NEGATIVE Hepatitis B Core Total Antibody REACTIVE H Hepatitis C Antibody NEGATIVE Urine Random Creatinine 56.49 Urine Collection Duration 24 Urine Total Volume 24 Hours 2500 Urine Creatinine Timed 24 Creatinine Clearance 97.1 Urine Total Volume (Protein) 2500 Urine Total Protein 24 Hour Imaging Free Text/Dictation PROCEDURE: Ultrasound of the bilateral lower extremity venous system. CLINICAL INDICATION: Bilateral leg pain and swelling, deep venous thrombosis TECHNIQUE: Schultz scale with and without compression, color doppler, spectral doppler of the venous system of the bilateral lower extremities was performed. Venous augmentation maneuvers were utilized. COMPARISON: No prior studies are available for comparison. FINDINGS: Right: Common femoral vein: Patent. Femoral vein: Patent. Popliteal vein: Patent. Calf veins: Patent. No soft tissue abnormalities are identified. Left: Common femoral vein: Patent. Femoral vein: Patent. Popliteal vein: Patent. Calf veins: Patent. No soft tissue abnormalities are identified. IMPRESSION: No evidence of a deep vein thrombosis within the bilateral lower extremities. PROCEDURE: US Abdomen (right upper quadrant). CLINICAL INDICATION: Elevated liver enzymes TECHNIQUE: Multiple real-time longitudinal and transverse images of the right upper quadrant of the abdomen were acquired utilizing a curved array transducer. Images were reviewed on a high-resolution PACS workstation. COMPARISON: US ABDOMEN 11/15/2017 FINDINGS: The liver is normal in size and echogenicity without focal mass or intrahepatic biliary dilatation. There is normal hepatopedal flow within the main portal vein. The gallbladder is normal. There is no pericholecystic fluid or gallbladder wall thickening or gallstones. No intra or extrahepatic biliary dilatation is seen. The common bile duct measures 4.1 mm in maximal dimension. The pancreas is not well visualized. No free fluid is identified. The right kidney measures 10.2 cm in length. There is normal echogenicity within the right kidney. There is mild hydronephrosis. Two calculi are again demonstrated, the larger measuring 5 mm. IMPRESSION: Right renal calculi and mild hydronephrosis. Normal sonographic appearance of the liver. RPTAT: HCNS Physician Brittany Date Time Electronically viewed and signed by Physician Brittany on 11/15/2017 07: 15 PROCEDURE: ULTRASOUND RETROPERITONEUM CLINICAL INDICATION: 67-year-old male with proteinuria. TECHNIQUE: Multiple sonographic images of the retroperitoneum were obtained. The images were reviewed on a PACS workstation. COMPARISON: None. FINDINGS: The kidneys are well visualized. The right kidney measures 10.8 x 5.1 x 5.0 cm. The left kidney measures 12.1 x 5.8 x 5.2 cm. There is a echogenic right renal calculus measuring 5 mm. There are multiple echogenic left renal calculi with the largest measuring 6 mm. There is no evidence for obstructive uropathy. The bladder is without internal echoes or shadowing stones. IMPRESSION: 1. No sonographic evidence for obstructive uropathy. 2. Bilateral renal calculi. .Alexandru Garner MD, MD Date Time Electronically viewed and signed by .Alexandru Garner MD, MD on 11/15/2017 01:12 Medications Medications Current Medications Acetaminophen (Tylenol Tab) 650 mg Q6H PRN PO PAIN LEVEL 1-3 OR FEVER Last administered on 11/16/17 13:50; Admin Dose 650 MG; Start 11/15/17 at 04:30 Aspirin (Halfprin) 81 mg DAILY PO Last administered on 11/17/17 07:42; Admin Dose 81 MG; Start 11/16/17 at 09:00 Atorvastatin Calcium (Lipitor) 80 mg QHS PO Last administered on 11/16/17 20: 22; Admin Dose 80 MG; Start 11/15/17 at 21:00 Carvedilol (Coreg) 12.5 mg Q12 PO Last administered on 11/17/17 07:43; Admin Dose 12.5 MG; Start 11/15/17 at 21:00 GEETA JUAREZ Nov 17, 2017 16:00
[2017-11-17 17:38] VITALS: BP 110/68; PULSE 87
[2017-11-17 18:32] LABS: CREATININE, RANDOM URINE 121 mg/dL (20-370); MICROALBUMIN 480.3 mg/dL; PROTEIN/CREATININE RATIO 6678 mg/g creat (22-128)
[2017-11-17 20:00] VITALS: BP 100/59; RESP 20
[2017-11-17 20:42] LABS: PROTEIN, TOTAL 3.6 g/dL (6.1-8.1)
[2017-11-17 20:42] LABS: ANA SCREEN POSITIVE (NEGATIVE)
[2017-11-17 21:21] LABS: ANA TITER 1:40 titer
[2017-11-17] MEDS: ATORVASTATIN 80 MG TAB PO SCH (21:33)
[2017-11-18] MEDS: FUROSEMIDE 20 MG INJ IV SCH ×2 (06:18→18:49)
[2017-11-18 06:25] LABS: BASOPHILS % 0.5 % (0.0-2.0); EOSINOPHILS # 0.2 10^3/ul (0.0-0.5); EOSINOPHILS % 4.1 % (0.0-7.0); HEMATOCRIT 44.1 % (42.0-52.0); HEMOGLOBIN 15.5 g/dl (14.0-18.0); LYMPHOCYTES # 1.4 10^3/ul (0.8-2.9); LYMPHOCYTES % 23.8 % (15.0-51.0); MEAN CORPUSCULAR HEMOGLOBIN 31.6 pg (29.0-33.0); MEAN CORPUSCULAR HGB CONC 35.1 g/dl (32.0-37.0); MEAN PLATELET VOLUME 10.8 fl (7.4-10.4); MONOCYTE # 0.6 10^3/ul (0.3-0.9); MONOCYTES % 10.9 % (0.0-11.0); NEUTROPHIL # 3.6 10^3/ul (1.6-7.5); NEUTROPHILS % 60.4 % (39.0-77.0); PLATELET COUNT 219 10^3/UL (140-415); RED CELL DISTRIBUTION WIDTH 13.8 % (11.5-14.5); WHITE BLOOD COUNT 5.9 10^3/ul (4.8-10.8)
[2017-11-18 07:01] LABS: CALCIUM 7.8 mg/dl (8.4-10.2); CREATININE 0.94 mg/dl (0.61-1.24); PHOSPHORUS 3.6 mg/dl (2.5-4.9); POTASSIUM 3.9 mmol/L (3.5-5.1)
[2017-11-18 07:47] VITALS: BP 117/74; RESP 16
[2017-11-18] MEDS: ASPIRIN (EC) 81 MG TAB PO SCH (08:40)
--- NOTE | 2017-11-18 09:26 | PN ---
DATE: 11/18/2017 SUBJECTIVE: The patient is stable. No events overnight. The patient continues to have good urinar y output. Edema has slowly been improving. Please note, I discussed with the patient about the renal biopsy. Risks and benefits were explained to the patient. Patient agrees and will have an underlying biopsy to ascertain his underlying neph rotic syndrome. No other events noted. OBJECTIVE: VITAL SIGNS: Blood pressure is 117/74, respirations 16, pulse 66, temperature 97.9. HEENT: Head is normocephalic. NECK: Supple. HEART: Regular rate. LUNGS: Show diminished breath sounds at the base. ABDOMEN: Soft, nontender to palpation. No rebound or guarding. EXTREMITIES: Negative for clubbing, cyanosis. Positive edema. DERMATOLOGIC: No rashes. MUSCULOSKELETAL: No joint effusion. NEUROLOGIC: No change in exam. MEDICATIONS: The patient's medications have been reviewed. LABORATORY DATA: Shows sodium 136, potassium 3.9, BUN 22, creatinine 0.94, calcium 7.8. The patien t's NILDA was positive, complements were within normal limits. ANCA level is pending. The patient's 24-hour urinary protein showed 12 grams per gram of creatinine. The patient had a spot protein crea tinine ratio of 6 grams per gram of creatinine, and a microalbumin creatinine ratio of 4 grams per g eleanor creatinine. ASSESSMENT AND PLAN: 1. Nephrotic syndrome. The patient's 24-hour protein urine collection showed over 12 grams per gra m of creatinine. The patient is hypoalbuminemic and has significant edema consistent with a nephrot ic syndrome. Underlying etiology is concerning for primary glomerulopathy such as primary focal seg mental glomerulosclerosis, membranous nephropathy, minimal change disease, possible membranoprolifer ative glomerulonephritis. Other possibilities such as amyloidosis are a consideration. The plan no w is for renal biopsy. I explained to the patient the risks and benefits. The patient agrees and w ishes to proceed with a biopsy. Will therefore continue current treatment plan. We will continue c urrent diuretic regimen, adjust medications as needed, and monitor closely. 2. History of congestive heart failure. Continue medical management. Follow up 2D echo. 3. Coronary artery disease. Continue medical management. 4. Hypertension. Continue current blood pressure regimen. 5. Dyslipidemia. Continue statin therapy. 6. Gastrointestinal and deep vein thrombosis prophylaxis. Dictated By: MAEGAN IQBAL/TORI Conf#: [id number] DID#: [id number] CC: MARIA GUADALUPE SOLER MD;*[facility]
--- NOTE | 2017-11-18 12:46 | PN ---
Date/Time of Note Date/Time of Note DATE: 11/18/17 TIME: 12:34 Assessment/Plan VTE Prophylaxis VTE Prophylaxis Intervention: SCD's Lines/Catheters IV [facility] Saline Lock Urinary Cath still in place: No Assessment/Plan Assessment/Plan 67-year-old male with: 1. Nephrotic syndrome: diffuse anasarca, 24 hour urine collection did confirm nephrotic range proteinuria, hepatitis B positive Patient to have renal biopsy, appreciate recommendations and assistance from nephrology, Dr. Culver. Check PT/PTT/ INR Continue diuretics, monitor renal function 2D echo with ejection fraction of 55%. Doppler lower extremity negative for DVT, renal and liver ultrasound fairly unremarkable. 2. Coronary artery disease, status post stenting 3 years ago, continue current medications including statin therapy, carvedilol and patient also has been on aspirin. Hold aspirin tomorrow, will resume after renal biopsy. Prophylaxis: Patient tolerating p.o., should be ambulatory. Otherwise SCDs for DVT prophylaxis Disposition: Renal biopsy to be scheduled for tomorrow per orders. Appreciate recommendations from nephrology. Subjective 24 Hr Interval Summary Free Text/Dictation Patient doing better, he has been diuresing well, 24 hour urine collection did confirm nephrotic range proteinuria. Patient getting renal biopsy per nephrology. Exam/Review of Systems Vital Signs Vitals Vital Signs Date Time Temp Pulse Resp B/P Pulse Ox O2 Delivery O2 Flow Rate FiO2 11/18/17 07:47 97.9 66 16 117/74 93 11/15/17 21:22 Room Air Intake and Output 11/17/17 11/17/17 11/18/17 15:00 23:00 07:00 Intake Total 1380 ml Output Total 750 ml Balance 630 ml Exam Constitutional: alert, oriented, other (Less anasarca), well developed Respiratory: clear to auscultation, normal air movement Cardiovascular: nl pulses, regular rate and rhythm Gastrointestinal: non-tender, soft Musculoskeletal: nl extremities to inspection Extremities: normal pulses, other (No edema, clubbing or cyanosis) Neurological: MEDIA ANALYTICS MANAGER II-XII intact, nl mental status, nl speech, nl strength Results Result Diagram: 11/18/17 0531 11/18/17 0531 Results 24 hrs Laboratory Tests Test 11/18/17 05:31 White Blood Count 5.9 # Red Blood Count 4.90 Hemoglobin 15.5 Hematocrit 44.1 Mean Corpuscular Volume 90.0 Mean Corpuscular Hemoglobin 31.6 Mean Corpuscular Hemoglobin Concent 35.1 Red Cell Distribution Width 13.8 Platelet Count 219 Mean Platelet Volume 10.8 H Neutrophils % 60.4 Lymphocytes % 23.8 Monocytes % 10.9 Eosinophils % 4.1 Basophils % 0.5 Nucleated Red Blood Cells % 0.0 Neutrophils # 3.6 Lymphocytes # 1.4 Monocytes # 0.6 Eosinophils # 0.2 Basophils # 0.0 Nucleated Red Blood Cells # 0.0 Sodium Level 137 Potassium Level 3.9 Chloride Level 106 Carbon Dioxide Level 29 Anion Gap 6 L Blood Urea Nitrogen 22 H Creatinine 0.94 Glucose Level 127 Uric Acid 5.6 Calcium Level 7.8 L Phosphorus Level 3.6 Magnesium Level 2.0 Medications Medications Current Medications Acetaminophen (Tylenol Tab) 650 mg Q6H PRN PO PAIN LEVEL 1-3 OR FEVER Last administered on 11/16/17 13:50; Admin Dose 650 MG; Start 11/15/17 at 04:30 Aspirin (Halfprin) 81 mg DAILY PO Last administered on 11/18/17 08:40; Admin Dose 81 MG; Start 11/16/17 at 09:00 Atorvastatin Calcium (Lipitor) 80 mg QHS PO Last administered on 11/17/17 21: 33; Admin Dose 80 MG; Start 11/15/17 at 21:00 Carvedilol (Coreg) 12.5 mg Q12 PO Last administered on 11/18/17 08:41; Admin Dose 12.5 MG; Start 11/15/17 at 21:00 Procedures Procedures Echocardiogram Report Patient Name: LINDSEY HOUSER Gender: Male Date: 1950 Study Date: 16-Nov-2017 Escalation Engineer: ANN MARIE Location: [id number] Ref. Physician: MARIA GUADALUPE SOLER Quality: Good Procedures: Transthoracic echocardiogram with complete 2D, M-Mode, and doppler examination. Indications: Edema. 2D/M Mode Doppler Measurement Value Normal Ranges Measurement Value Normal Ranges AoR Diam MM 3.1 cm ARUN Vmax 2.6 cm2 LA/Ao MM 1.3 AV Mean Juan Ramon 0.7 m/sec LA Dimen MM 4.0 cm AV Mean PG 2.0 mmHg LVIDd 2D 4.3 3.5 - 5.6 cm AV Peak Juan Ramon 1.0 m/sec LVIDs 2D 3.1 2.1 - 4.1 cm AV Peak PG 4.0 mmHg FS 2D 28.2 % AV VTI 18.0 cm LVPWd 2D 1.0 0.6 - 1.1 cm LVOT Peak Juan Ramon 0.9 m/sec IVSd 2D 0.9 0.6 - 1.1 cm LVOT Peak PG 3.0 mmHg IVS/LVPW 2D 1.0 MV E Peak Juan Ramon 0.7 m/sec EDV 2D 77.3 cm3 MV A Peak Juan Ramon 0.8 m/sec ESV 2D 28.7 cm3 MV E/A 0.8 EF 2D 55.0 50.0 - 65.0 % MV Decel Time 183 msec LVOT Diam 1.9 cm MV E/A 0.8 LVOT Area 2.8 cm2 MR Peak PG 52.0 mmHg MR Peak Juan Ramon 3.6 m/sec TR Peak Juan Ramon 2.3 m/sec TR Peak PG 22.0 mmHg RVSP 25.0 mmHg RA Pressure 3.0 Findings Left Ventricle: Lower limits of normal systolic function. Normal left ventricular cavity size. Normal left ventricular wall thickness. Ejection fraction is visually estimated at 5055 %. Tissue Doppler/Mitral Doppler indices are consistent with impaired relaxation (Stage I diastolic dysfunction). Right Ventricle: Normal right ventricular size. Normal right ventricular systolic function. Left Atrium: Upper limit of normal left atrial size. Right Atrium: The right atrium is normal in size. Mitral Valve: Normal appearance of the mitral valve. There is trace to mild mitral valve regurgitation. Aortic Valve: Normal appearance of the aortic valve. No significant aortic stenosis with trivial insufficiency. Tricuspid Valve: Normal appearance of the tricuspid valve. Normal right ventricular systolic pressure. Estimated peak PA systolic pressure 25 mmHg. There is trace tricuspid regurgitation. Pericardium: Normal pericardium with no significant pericardial effusion. Aorta: Normal aortic root. IVC: Normal size and normal respiratory collapse visually consistent with normal right atrial pressure. Conclusions 1. Lower limits of normal systolic function. Normal left ventricular cavity size. Normal left ventricular wall thickness. Ejection fraction is visually estimated at 5055 %. Tissue Doppler/Mitral Doppler indices are consistent with impaired relaxation (Stage I diastolic dysfunction). 2. Normal appearance of the mitral valve. There is trace to mild mitral valve regurgitation. 3. Normal appearance of the aortic valve. No significant aortic stenosis with trivial insufficiency. 4. Normal appearance of the tricuspid valve. Normal right ventricular systolic pressure. Estimated peak PA systolic pressure 25 mmHg. There is trace tricuspid regurgitation. Electronically Signed By: Wagner Garcia 17-Nov-2017 15:30:58 -0800 GEETA JUAREZ Nov 18, 2017 12:44
[2017-11-18 15:26] LABS: MYELOPEROXIDASE ANTIBODY <1.0 AI; PROTEINASE-3 ANTIBODY <1.0 AI
[2017-11-18 15:29] VITALS: BP 106/64; RESP 16
[2017-11-18 16:01] LABS: INR 0.9; PROTIME 12.2 Sec (11.9-14.9)
[2017-11-18 16:12] LABS: ALBUMIN 1.5 g/dL (3.8-4.8)
[2017-11-18 17:31] LABS: PARTIAL THROMBOPLASTIN TIME 38.3 Sec (25.0-35.0)
[2017-11-18 19:44] VITALS: BP 106/68; RESP 20
[2017-11-18] MEDS: ATORVASTATIN 80 MG TAB PO SCH (21:23)
[2017-11-19 02:24] VITALS: BP 100/66; RESP 18
[2017-11-19 05:57] LABS: BASOPHILS % 0.6 % (0.0-2.0); EOSINOPHILS # 0.2 10^3/ul (0.0-0.5); EOSINOPHILS % 4.5 % (0.0-7.0); HEMATOCRIT 43.3 % (42.0-52.0); HEMOGLOBIN 14.8 g/dl (14.0-18.0); LYMPHOCYTES # 1.5 10^3/ul (0.8-2.9); LYMPHOCYTES % 31.2 % (15.0-51.0); MEAN CORPUSCULAR HEMOGLOBIN 30.8 pg (29.0-33.0); MEAN CORPUSCULAR HGB CONC 34.2 g/dl (32.0-37.0); MONOCYTE # 0.6 10^3/ul (0.3-0.9); MONOCYTES % 12.2 % (0.0-11.0); NEUTROPHIL # 2.5 10^3/ul (1.6-7.5); NEUTROPHILS % 51.3 % (39.0-77.0); PLATELET COUNT 206 10^3/UL (140-415); RED BLOOD COUNT 4.81 10^6/ul (4.70-6.10); RED CELL DISTRIBUTION WIDTH 13.8 % (11.5-14.5); WHITE BLOOD COUNT 4.8 10^3/ul (4.8-10.8)
[2017-11-19] MEDS: FUROSEMIDE 20 MG INJ IV SCH ×2 (06:01→18:18)
[2017-11-19 06:46] LABS: ALBUMIN 1.8 g/dl (3.3-4.9); ALBUMIN/GLOBULIN RATIO 0.6; BILIRUBIN,INDIRECT 0.3 mg/dl (0-1.1); BILIRUBIN,TOTAL 0.3 mg/dl (0.2-1.3); CALCIUM 7.6 mg/dl (8.4-10.2); CREATININE 0.91 mg/dl (0.61-1.24); POTASSIUM 3.7 mmol/L (3.5-5.1); TOTAL PROTEIN 4.8 g/dl (6.1-8.1)
[2017-11-19 07:24] VITALS: BP 105/62; RESP 16
[2017-11-19 07:30] LABS: PHOSPHORUS 3.4 mg/dl (2.5-4.9)
--- NOTE | 2017-11-19 09:04 | PN ---
DATE: 11/19/2017 SUBJECTIVE: The patient is stable. No events occurred overnight. OBJECTIVE: VITAL SIGNS: Blood pressure is 105/62, respirations 16, pulse 72, temperature 98.0. HEENT: Head is normocephalic. NECK: Supple. HEART: Regular rate. LUNGS: Show diminished breath sounds at the base. ABDOMEN: Soft, nontender to palpation. No rebound or guarding. EXTREMITIES: Negative for clubbing, cyanosis. Positive edema. DERMATOLOGIC: No rashes. MUSCULOSKELETAL: No joint effusions. NEUROLOGIC: No change in exam. MEDICATIONS: The patient's medications have been reviewed. LABORATORY DATA: Showed sodium 137, potassium 3.7, BUN 20, creatinine 0.91. White count 4.8, hemog lobin 14.8, platelet count is 206. ASSESSMENT AND PLAN: 1. Nephrotic syndrome. Patient has greater than 12 grams per gram of creatinine on a 24-hour urine collection. The etiology is concerning for primary glomerulopathy such as a primary FSGS, membrano us nephropathy, minimal change disease, possible MPGN. Other possibilities such as amyloidosis are considered. Plan is for renal biopsy today. Risks and benefits of biopsy was explained to the tristan ent. We will continue current treatment plan. Continue diuretic regimen and monitor closely. 2. History of congestive heart failure. A 2D echo shows preserved ejection fraction of 55% and IVC with normal size and respiratory collapse, and normal valvular appearance. Continue to monitor. 3. Coronary artery disease. Continue medical management. 4. Hypertension. Continue current blood pressure regimen. 5. Dyslipidemia. Continue statin therapy. 6. Gastrointestinal and deep vein thrombosis prophylaxis. Dictated By: MAEGAN IQBAL/TORI Conf#: [id number] DID#: [id number] CC: GEETA JUAREZ MD; MARIA GUADALUPE SOLER MD;*EndCC*
[2017-11-19 14:10] VITALS: BP 114/68; RESP 16
--- NOTE | 2017-11-19 16:38 | PN ---
Date/Time of Note Date/Time of Note DATE: 11/19/17 TIME: 16:33 Assessment/Plan VTE Prophylaxis VTE Prophylaxis Intervention: SCD's Lines/Catheters IV Catheter Type (from [facility]): Saline Lock Urinary Cath still in place: No Assessment/Plan Assessment/Plan 67-year-old male with: 1. Nephrotic syndrome: diffuse anasarca, 24 hour urine collection did confirm nephrotic range proteinuria, hepatitis B positive Patient to have renal biopsy, appreciate recommendations and assistance from nephrology, Dr. Culver. PT/PTT/ INR within normal limits Continue diuretics, monitor renal function. 2D echo with ejection fraction of 55%. Doppler lower extremity negative for DVT, renal and liver ultrasound fairly unremarkable. Renal biopsy has been delayed today due to unavailability of anesthesia last- minute. 2. Coronary artery disease, status post stenting 3 years ago, continue current medications including statin therapy, carvedilol and patient also has been on aspirin. Hold aspirin for now, will resume after renal biopsy. Prophylaxis: Patient tolerating p.o., should be ambulatory. Otherwise SCDs for DVT prophylaxis Disposition: Renal biopsy re-scheduled for tomorrow per IR and anesthesia. Appreciate recommendations from nephrology. Subjective 24 Hr Interval Summary Free Text/Dictation Patient doing well, he has been n.p.o. all day for renal biopsy however we were notified by IR at that he is procedure will be delayed another day. Likely due to anesthesia. All arrangement were made but the patient was canceled last minute and delayed to the next day Exam/Review of Systems Vital Signs Vitals Vital Signs Date Time Temp Pulse Resp B/P Pulse Ox O2 Delivery O2 Flow Rate FiO2 11/19/17 14:10 97.4 72 16 114/68 93 11/15/17 21:22 Room Air Intake and Output 11/18/17 11/18/17 11/19/17 15:00 23:00 07:00 Intake Total 1170 ml 480 ml Balance 1170 ml 480 ml Exam Constitutional: alert, oriented, well developed Respiratory: clear to auscultation, normal air movement Cardiovascular: nl pulses, regular rate and rhythm Gastrointestinal: non-tender, soft Musculoskeletal: nl extremities to inspection, swelling (Anasarca much improved ) Extremities: normal pulses, other (No clubbing or cyanosis. Patient has trace to +1 edema.) Neurological: BPM DEVELOPER II-XII intact, nl mental status, nl speech, nl strength Results Result Diagram: 11/19/17 0529 11/19/17 0528 Results 24 hrs Laboratory Tests Test 11/19/17 05:28 11/19/17 05:29 11/19/17 11:41 11/19/17 12:00 Sodium Level 137 Potassium Level 3.7 Chloride Level 106 Carbon Dioxide Level 29 Anion Gap 6 L Blood Urea Nitrogen 20 Creatinine 0.91 Glucose Level 119 Calcium Level 7.6 L Phosphorus Level 3.4 Magnesium Level 2.0 Total Bilirubin 0.3 Direct Bilirubin 0.00 Indirect Bilirubin 0.3 Aspartate Amino Transf (AST/SGOT) 24 Alanine Aminotransferase (ALT/SGPT) 30 Alkaline Phosphatase 162 H Total Protein 4.8 L Albumin 1.8 L Globulin 3.00 Albumin/Globulin Ratio 0.60 White Blood Count 4.8 Red Blood Count 4.81 Hemoglobin 14.8 Hematocrit 43.3 Mean Corpuscular Volume 90.0 Mean Corpuscular Hemoglobin 30.8 Mean Corpuscular Hemoglobin Concent 34.2 Red Cell Distribution Width 13.8 Platelet Count 206 Mean Platelet Volume 11.0 H Neutrophils % 51.3 Lymphocytes % 31.2 Monocytes % 12.2 H Eosinophils % 4.5 Basophils % 0.6 Nucleated Red Blood Cells % 0.0 Neutrophils # 2.5 Lymphocytes # 1.5 Monocytes # 0.6 Eosinophils # 0.2 Basophils # 0.0 Nucleated Red Blood Cells # 0.0 Lab Scanned Report REFERENCE LAB REFERENCE LAB Medications Medications Current Medications Acetaminophen (Tylenol Tab) 650 mg Q6H PRN PO PAIN LEVEL 1-3 OR FEVER Last administered on 11/16/17 13:50; Admin Dose 650 MG; Start 11/15/17 at 04:30 Aspirin (Halfprin) 81 mg DAILY PO Last administered on 11/18/17 08:40; Admin Dose 81 MG; Start 11/16/17 at 09:00; Status Future Hold Atorvastatin Calcium (Lipitor) 80 mg QHS PO Last administered on 11/18/17 21: 23; Admin Dose 80 MG; Start 11/15/17 at 21:00 Carvedilol (Coreg) 12.5 mg Q12 PO Last administered on 11/18/17 08:41; Admin Dose 12.5 MG; Start 11/15/17 at 21:00 GEETA JUAREZ Nov 19, 2017 16:38
[2017-11-19] MEDS: ACETAMINOPHEN 325 MG TAB PO PRN (16:52)
[2017-11-19 19:23] VITALS: BP 101/59; RESP 20
[2017-11-19] MEDS: ATORVASTATIN 80 MG TAB PO SCH (21:08)
[2017-11-20] VITALS (13 sets, daily range): BP systolic 98–131; BP diastolic 63–78; PULSE 62–82; RESP 16–22
[2017-11-20] MEDS: FUROSEMIDE 20 MG INJ IV SCH ×2 (05:39→18:44)
[2017-11-20 05:54] LABS: BASOPHILS % 0.5 % (0.0-2.0); EOSINOPHILS # 0.2 10^3/ul (0.0-0.5); HEMATOCRIT 43.6 % (42.0-52.0); LYMPHOCYTES # 1.5 10^3/ul (0.8-2.9); LYMPHOCYTES % 26.3 % (15.0-51.0); MEAN CORPUSCULAR HEMOGLOBIN 30.9 pg (29.0-33.0); MEAN CORPUSCULAR HGB CONC 34.4 g/dl (32.0-37.0); MEAN CORPUSCULAR VOLUME 89.7 fl (82.0-101.0); MONOCYTE # 0.7 10^3/ul (0.3-0.9); MONOCYTES % 12.3 % (0.0-11.0); NEUTROPHIL # 3.3 10^3/ul (1.6-7.5); NEUTROPHILS % 56.7 % (39.0-77.0); PLATELET COUNT 208 10^3/UL (140-415); RED BLOOD COUNT 4.86 10^6/ul (4.70-6.10); RED CELL DISTRIBUTION WIDTH 13.7 % (11.5-14.5); WHITE BLOOD COUNT 5.8 10^3/ul (4.8-10.8)
[2017-11-20 06:25] LABS: CALCIUM 7.7 mg/dl (8.4-10.2); CREATININE 0.9 mg/dl (0.61-1.24)
[2017-11-20 06:29] LABS: PHOSPHORUS 3.6 mg/dl (2.5-4.9)
[2017-11-20] MEDS ORDERED: LIDOCAINE 1% (MDV) 20 ML INJ ONE (08:23)
[2017-11-20] MEDS ORDERED: GELATIN 12MM X 7 MM SPONGE ONE (08:23)
[2017-11-20] MEDS ORDERED: LIDOCAINE 2% (SDV) 5 ML INJ ONE (08:53)
[2017-11-20] MEDS ORDERED: MIDAZOLAM 1 MG/ML 2 ML INJ ONE (08:53)
[2017-11-20] MEDS ORDERED: FENTAnyl 50 MCG/ML VIAL ONE (08:53)
[2017-11-20] MEDS ORDERED: PROPOFOL 40 ML ONE (08:53)
--- NOTE | 2017-11-20 09:50 | RADRPT ---
PROCEDURE: CT guided right renal biopsy. CLINICAL INDICATION: Medical renal disease. Nephrotic syndrome. TECHNIQUE: Informed consent was obtained. The procedure, risks, benefits, complications and alternatives were explained to the patient. Risks including bleeding and infection were explained. The patient unders tood and was willing to proceed. A procedural pause was performed. The patient's name, date of garland h, and procedure to be performed were verified. One or more of the following dose reduction techni ques were used: Automated exposure control, adjustment of the mA and/or kV according to patient size , use of iterative reconstruction technique. DICOM images are available. Using local anesthetic, sterile technique and CT guidance, an 18-gauge automated core biopsy needle was used to biopsy the lower pole of the right kidney. Multiple passes were made. Adequate tissue was obtained according to the pathologist present during the procedure. Multiple Gelfoam pledgets m ixed with normal saline were then embolized through the outer cannula of the biopsy needle into the biopsy tract while the needle was removed. A postprocedural scan was performed. A dressing was applied. The patient tolerated procedure well. COMPARISON: None. FINDINGS: Initial images demonstrate the tip of the needle at the posterior margin of the lower pole of the ri ght kidney. Post biopsy images demonstrate no immediate complication. The Gelfoam is noted in the biopsy tract. IMPRESSION: 1. Successful CT guided biopsy of the right kidney for medical renal disease. RPTAT: QQ .Marcos Vences MD, MD Date Time Electronically viewed and signed by .Marcos Vences MD, MD on 11/20/2017 09:50 .R/
--- NOTE | 2017-11-20 10:17 | PN ---
DATE: 11/20/2017 SUBJECTIVE: The patient is stable, currently pending a renal biopsy. No other events noted. OBJECTIVE: VITAL SIGNS: Blood pressure 98/66, respirations 20, pulse 75, temperature 97.6. INTAKE AND OUTPUT: The patient had 649 in; 250 out. HEENT: Head is normocephalic. NECK: Supple. HEART: Regular rate. LUNGS: Show diminished breath sounds at base. ABDOMEN: Soft, nontender to palpation without rebound or guarding. EXTREMITIES: Negative for clubbing, cyanosis. Positive edema, improving. DERMATOLOGIC: No rashes. MUSCULOSKELETAL: No joint effusions. NEUROLOGIC: No change in exam. MEDICATIONS: The patient's medications have been reviewed. LABORATORY DATA: Shows sodium 138, potassium 4.0, BUN 27, creatinine 0.90. CBC within normal limit s. The patient noted to have an atypical P-ANCA titer. The patient's double stranded DNA and prote inase 3, as well as myeloperoxidase antibody were negative. ASSESSMENT AND PLAN: 1. Nephrotic syndrome. The patient with greater than 12 grams of creatinine per 24-hour urine hiren ection. Etiology is concerning for primary glomerulopathy, such as a primary FSGS, membranous nephr opathy, minimal change disease or a possible MPGN. Other possibilities such as a Pasi immune glomer ulonephritis is a consideration. The patient's serological workup does show positive atypical ANCA and a positive NILDA. Otherwise, patient's SPEP, UPEP, immunofixation were negative. Anti-double str anded DNAs were negative, and complements were within normal limits. The patient's renal function h as been stable during the hospital course. Plan at this point is for renal biopsy pending today. W e will otherwise continue current treatment with . Will continue current diuretic regimen. 2. History of congestive heart failure. The patient's 2D echo showed preserved ejection fraction. Continue to monitor. 3. Coronary artery disease. Continue medical management. 4. History of hypertension. Continue current blood pressure regimen. 5. Dyslipidemia. Continue statin therapy. 6. Gastrointestinal and deep vein thrombosis prophylaxis. Dictated By: MAEGAN IQBAL/NTS Conf#: [id number] DID#: [id number] CC: MARIA GUADALUPE SOLER MD;*EndCC*
[2017-11-20] MEDS ORDERED: HYDROmorphONE (0.2 MG/ML) 10ML SYG IV PRN (10:30)
[2017-11-20] MEDS ORDERED: FENTAnyl 50 MCG/ML VIAL IV PRN (10:30)
[2017-11-20] MEDS ORDERED: morphine (1 MG/ML) 10ML SYRINGE IV PRN (10:30)
[2017-11-20] MEDS ORDERED: ONDANSETRON 4 MG INJ IV PRN (10:30)
[2017-11-20] MEDS ORDERED: KETOROLAC 30 MG INJ IV PRN (10:30)
--- NOTE | 2017-11-20 13:43 | PN ---
Date/Time of Note Date/Time of Note DATE: 11/20/17 TIME: 13:43 Assessment/Plan VTE Prophylaxis VTE Prophylaxis Intervention: SCD's Lines/Catheters [facility] Saline Lock Urinary Cath still in place: No Assessment/Plan Assessment/Plan 67-year-old male with: 1. Nephrotic syndrome: diffuse anasarca, 24 hour urine collection did confirm nephrotic range proteinuria, hepatitis B positive Status post CT-guided renal biopsy this morning. Appreciate recommendations and assistance from nephrology, Dr. Culver. Continue diuretics, monitor renal function. 2D echo with ejection fraction of 55%. Doppler lower extremity negative for DVT, renal and liver ultrasound fairly unremarkable. Renal biopsy has been delayed today due to unavailability of anesthesia last- minute. 2. Coronary artery disease, status post stenting 3 years ago, continue current medications including statin therapy, carvedilol and patient also has been on aspirin. Resume aspirin in a.m. aspirin for now. Prophylaxis: Patient tolerating p.o., should be ambulatory. Otherwise SCDs for DVT prophylaxis Disposition: S/p Renal biopsy. Appreciate recommendations from nephrology. Will clarify discharge planning with nephrology, hopefully in the next 24 to 48 hrs. Subjective 24 Hr Interval Summary Free Text/Dictation Patient remained stable post renal biopsy, he is currently sleeping. Vital signs stable. Exam/Review of Systems Vital Signs Vitals Vital Signs Date Time Temp Pulse Resp B/P Pulse Ox O2 Delivery O2 Flow Rate FiO2 11/20/17 10:53 98.1 86 16 119/73 93 11/20/17 10:40 Room Air Intake and Output 11/19/17 11/19/17 11/20/17 14:59 22:59 06:59 Intake Total 640 ml Output Total 250 ml Balance 390 ml Exam Constitutional: alert, oriented, well developed Respiratory: clear to auscultation, normal air movement Cardiovascular: nl pulses, regular rate and rhythm Gastrointestinal: non-tender, soft Musculoskeletal: nl extremities to inspection Extremities: edema (+1 to +2 lower extremity edema bilaterally, much improved anasarca.), normal pulses, other (No clubbing or cyanosis) Neurological: POLISH COMPOUNDER II-XII intact, nl mental status, nl speech, nl strength Results Result Diagram: 11/20/1751911/20/17 0520 Results 24 hrs Laboratory Tests Test 11/20/17 05:20 White Blood Count 5.8 # Red Blood Count 4.86 Hemoglobin 15.0 Hematocrit 43.6 Mean Corpuscular Volume 89.7 Mean Corpuscular Hemoglobin 30.9 Mean Corpuscular Hemoglobin Concent 34.4 Red Cell Distribution Width 13.7 Platelet Count 208 Mean Platelet Volume 11.0 H Neutrophils % 56.7 Lymphocytes % 26.3 Monocytes % 12.3 H Eosinophils % 4.0 Basophils % 0.5 Nucleated Red Blood Cells % 0.0 Neutrophils # 3.3 Lymphocytes # 1.5 Monocytes # 0.7 Eosinophils # 0.2 Basophils # 0.0 Nucleated Red Blood Cells # 0.0 Sodium Level 138 Potassium Level 4.0 Chloride Level 109 Carbon Dioxide Level 27 Anion Gap 6 L Blood Urea Nitrogen 27 H Creatinine 0.90 Glucose Level 117 Calcium Level 7.7 L Phosphorus Level 3.6 Magnesium Level 2.0 Medications Medications Current Medications Acetaminophen (Tylenol Tab) 650 mg Q6H PRN PO PAIN LEVEL 1-3 OR FEVER Last administered on 11/19/17 16:52; Admin Dose 650 MG; Start 11/15/17 at 04:30 Aspirin (Halfprin) 81 mg DAILY PO Last administered on 11/18/17 08:40; Admin Dose 81 MG; Start 11/16/17 at 09:00; Status Future Hold Atorvastatin Calcium (Lipitor) 80 mg QHS PO Last administered on 11/19/17 21: 08; Admin Dose 80 MG; Start 11/15/17 at 21:00 Carvedilol (Coreg) 12.5 mg Q12 PO Last administered on 11/18/17 08:41; Admin Dose 12.5 MG; Start 11/15/17 at 21:00 Procedures Procedures PROCEDURE: CT guided right renal biopsy. CLINICAL INDICATION: Medical renal disease. Nephrotic syndrome. TECHNIQUE: Informed consent was obtained. The procedure, risks, benefits, complications and alternatives were explained to the patient. Risks including bleeding and infection were explained. The patient understood and was willing to proceed. A procedural pause was performed. The patient's name, date of , and procedure to be performed were verified. One or more of the following dose reduction techniques were used: Automated exposure control, adjustment of the mA and/or kV according to patient size, use of iterative reconstruction technique. DICOM images are available. Using local anesthetic, sterile technique and CT guidance, an 18-gauge automated core biopsy needle was used to biopsy the lower pole of the right kidney. Multiple passes were made. Adequate tissue was obtained according to the pathologist present during the procedure. Multiple Gelfoam pledgets mixed with normal saline were then embolized through the outer cannula of the biopsy needle into the biopsy tract while the needle was removed. A postprocedural scan was performed. A dressing was applied. The patient tolerated procedure well. COMPARISON: None. FINDINGS: Initial images demonstrate the tip of the needle at the posterior margin of the lower pole of the right kidney. Post biopsy images demonstrate no immediate complication. The Gelfoam is noted in the biopsy tract. IMPRESSION: 1. Successful CT guided biopsy of the right kidney for medical renal disease. RPTAT: QQ .Marcos Vences MD, Date Time Electronically viewed and signed by .Marcos Vences MD, on 11/20/2017 09:50 GEETA JUAREZ Nov 20, 2017 13:43
[2017-11-20] MEDS: ACETAMINOPHEN 325 MG TAB PO PRN (16:25)
[2017-11-20] MEDS: ATORVASTATIN 80 MG TAB PO SCH (21:17)
[2017-11-21 02:40] VITALS: BP 99/67; RESP 18
[2017-11-21] MEDS: FUROSEMIDE 20 MG INJ IV SCH (06:07)
[2017-11-21 07:05] LABS: BASOPHILS % 0.7 % (0.0-2.0); EOSINOPHILS # 0.1 10^3/ul (0.0-0.5); EOSINOPHILS % 2.3 % (0.0-7.0); HEMATOCRIT 44.2 % (42.0-52.0); LYMPHOCYTES # 1.2 10^3/ul (0.8-2.9); LYMPHOCYTES % 19.7 % (15.0-51.0); MEAN CORPUSCULAR HEMOGLOBIN 30.7 pg (29.0-33.0); MEAN CORPUSCULAR HGB CONC 33.9 g/dl (32.0-37.0); MEAN CORPUSCULAR VOLUME 90.6 fl (82.0-101.0); MEAN PLATELET VOLUME 11.3 fl (7.4-10.4); MONOCYTE # 0.7 10^3/ul (0.3-0.9); MONOCYTES % 11.3 % (0.0-11.0); NEUTROPHIL # 3.9 10^3/ul (1.6-7.5); NEUTROPHILS % 65.7 % (39.0-77.0); PLATELET COUNT 204 10^3/UL (140-415); RED BLOOD COUNT 4.88 10^6/ul (4.70-6.10); RED CELL DISTRIBUTION WIDTH 13.7 % (11.5-14.5)
[2017-11-21 07:16] VITALS: BP 114/72; RESP 16
[2017-11-21 07:39] LABS: CALCIUM 7.4 mg/dl (8.4-10.2); CREATININE 0.91 mg/dl (0.61-1.24); MAGNESIUM 1.9 mg/dl (1.7-2.5); PHOSPHORUS 3.5 mg/dl (2.5-4.9); POTASSIUM 3.7 mmol/L (3.5-5.1)
[2017-11-21] MEDS: ACETAMINOPHEN 325 MG TAB PO PRN (10:21)
[2017-11-21 11:12] LABS: ALBUMIN 1.8 g/dl (3.3-4.9); BILIRUBIN,INDIRECT 0.2 mg/dl (0-1.1); BILIRUBIN,TOTAL 0.2 mg/dl (0.2-1.3); TOTAL PROTEIN 4.7 g/dl (6.1-8.1)
--- NOTE | 2017-11-21 12:05 | PN ---
Date/Time of Note Date/Time of Note DATE: 11/21/17 TIME: 12:03 Assessment/Plan VTE Prophylaxis VTE Prophylaxis Intervention: SCD's Lines/Catheters IV Catheter Type (from [facility], [place]): Saline Lock Urinary Cath still in place: No Assessment/Plan Assessment/Plan 67-year-old male with: 1. Nephrotic syndrome: diffuse anasarca, 24 hour urine collection did confirm nephrotic range proteinuria, hepatitis B positive Status post CT-guided renal biopsy, POD#1, results pending, patient follow-up with Dr. Culver outpatient regarding final pathology and further care depending on underlying disease causing nephrotic syndrome. Appreciate recommendations and assistance from nephrology, Dr. Culver. Continue diuretics, Lasix changed to 20 mg p.o. twice daily. 2D echo with ejection fraction of 55%. Doppler lower extremity negative for DVT, renal and liver ultrasound fairly unremarkable. 2. Coronary artery disease, status post stenting 3 years ago, continue current medications including statin therapy, carvedilol and patient also has been on aspirin. Resume aspirin today. Prophylaxis: Patient tolerating p.o., should be ambulatory. Otherwise SCDs for DVT prophylaxis Disposition: Discharge home today, resume all home medications with increased dose of Lasix. Appreciate recommendations from nephrology, patient to follow- up with Dr. Culver as an outpatient regarding pathology results and further care. Subjective 24 Hr Interval Summary Free Text/Dictation Patient doing well, has well diuresis during his stay, renal biopsy done yesterday morning, he has been stable over the past 24 hours. Per nephrology okay to discharge home, he will be following up with Dr. Culver as an outpatient regarding biopsy results and further treatment depending on the type of nephrotic syndrome he has. Exam/Review of Systems Vital Signs Vitals Vital Signs Date Time Temp Pulse Resp B/P Pulse Ox O2 Delivery O2 Flow Rate FiO2 11/21/17 07:16 98.2 16 114/72 97 11/21/17 02:40 77 11/20/17 10:40 Room Air Intake and Output 11/20/17 11/20/17 11/21/17 15:00 23:00 07:00 Intake Total 0 ml 680 ml 360 ml Output Total 301 ml Balance 0 ml 379 ml 360 ml Exam Constitutional: alert, oriented, well developed Respiratory: clear to auscultation, normal air movement Cardiovascular: nl pulses, regular rate and rhythm Gastrointestinal: non-tender, soft Musculoskeletal: nl extremities to inspection, nl gait and stance, swelling ( Anasarca almost completely resolved) Extremities: normal pulses, other (Trace edema bilateral lower extremities, no clubbing or cyanosis) Neurological: MACHINE STOPPAGE FREQUENCY CHECKER II-XII intact, nl mental status, nl speech, nl strength Results Result Diagram: 11/21/17 0547 11/21/17 0547 Results 24 hrs Laboratory Tests Test 11/21/17 05:47 White Blood Count 6.0 Red Blood Count 4.88 Hemoglobin 15.0 Hematocrit 44.2 Mean Corpuscular Volume 90.6 Mean Corpuscular Hemoglobin 30.7 Mean Corpuscular Hemoglobin Concent 33.9 Red Cell Distribution Width 13.7 Platelet Count 204 Mean Platelet Volume 11.3 H Neutrophils % 65.7 Lymphocytes % 19.7 Monocytes % 11.3 H Eosinophils % 2.3 Basophils % 0.7 Nucleated Red Blood Cells % 0.0 Neutrophils # 3.9 Lymphocytes # 1.2 Monocytes # 0.7 Eosinophils # 0.1 Basophils # 0.0 Nucleated Red Blood Cells # 0.0 Sodium Level 135 Potassium Level 3.7 Chloride Level 106 Carbon Dioxide Level 27 Anion Gap 6 L Blood Urea Nitrogen 23 H Creatinine 0.91 Glucose Level 128 Calcium Level 7.4 L Phosphorus Level 3.5 Magnesium Level 1.9 Total Bilirubin 0.2 Direct Bilirubin 0.00 Indirect Bilirubin 0.2 Aspartate Amino Transf (AST/SGOT) 34 Alanine Aminotransferase (ALT/SGPT) 36 Alkaline Phosphatase 180 H Total Protein 4.7 L Albumin 1.8 L Medications Medications Current Medications Acetaminophen (Tylenol Tab) 650 mg Q6H PRN PO PAIN LEVEL 1-3 OR FEVER Last administered on 11/21/17 10:21; Admin Dose 650 MG; Start 11/15/17 at 04:30 Aspirin (Halfprin) 81 mg DAILY PO Last administered on 11/18/17 08:40; Admin Dose 81 MG; Start 11/16/17 at 09:00; Status Future Hold Atorvastatin Calcium (Lipitor) 80 mg QHS PO Last administered on 11/20/17 21: 17; Admin Dose 80 MG; Start 11/15/17 at 21:00 Carvedilol (Coreg) 12.5 mg Q12 PO Last administered on 11/20/17 21:17; Admin Dose 12.5 MG; Start 11/15/17 at 21:00 GEETA JUAREZ Nov 21, 2017 12:05
[2017-11-21] MEDS ORDERED: FURO20TA3 PO (12:10)
--- NOTE | 2017-11-21 12:11 | PDOCDIS ---
Discharge Instructions CONDITION Patient Condition: Stable HOME CARE INSTRUCTIONS: Diet Instructions: Low Fat /Cholesterol ACTIVITY: Activity Restrictions: No Restrictions FOLLOW UP/APPOINTMENTS Follow-up Plan Follow-up with nephrology, Dr. Culver, patient to call his office on Friday for appointment. Follow-up with primary care physician within 1-2 weeks GEETA JUAREZ Nov 21, 2017 12:11
--- NOTE | 2017-11-21 12:16 | PN ---
DATE: 11/21/2017 SUBJECTIVE: The patient is stable. No events overnight. The patient had a renal biopsy yesterday, tolerated well without any complications. OBJECTIVE: VITAL SIGNS: Blood pressure is 114/72, respirations 16, pulse 77, temperature 97.9. HEENT: Head is normocephalic. NECK: Supple. HEART: Regular rate. LUNGS: Show diminished breath sounds at the base. ABDOMEN: Soft, nontender to palpation. No rebound or guarding. EXTREMITIES: Negative for clubbing, cyanosis. Positive edema, improving. DERMATOLOGIC: No rashes. MUSCULOSKELETAL: No joint effusions. NEUROLOGIC: No change in exam. MEDICATIONS: The patient's medications have been reviewed. LABORATORY DATA: Shows sodium 135, potassium 2.7, chloride 106, BUN 23, creatinine 0.91. White cou nt 6.0, hemoglobin 15.0, platelet count 204. ASSESSMENT AND PLAN: 1. Nephrotic syndrome. The patient has greater than 12 grams of creatinine per 24 hour urine colle ction. Etiology is concerning for primary glomerulopathy such as primary FSGS, membranous nephropat hy, minimal change disease or possible MPGN. Other possibilities such as Pauci-immune glomeruloneph ritis is a consideration. The patient's serological workup does show a positive atypical ANCA and a positive NILDA. The patient's SPEP, UPEP, immunofixation were negative. Anti-double stranded DNAs w ere negative and complements were within normal limits. The patient's renal function has been stabl e during the hospital course. The patient is status post renal biopsy. At this point, patient may be discharged home on current diuretic regimen of Lasix 20 mg p.o. b.i.d. The patient is to follow up with me in the outpatient setting when biopsy results are available. 2. History of congestive heart failure. The patient's 2D echo showed a preserved ejection fraction . Continue to monitor. 3. Coronary artery disease. Continue medical management. 4. History of hypertension. Continue current blood pressure regimen. 5. Dyslipidemia. Continue statin therapy. 6. Gastrointestinal and deep vein thrombosis prophylaxis. Dictated By: MAEGAN IQBAL/TORI Conf#: [id number] DID#: [id number]
[2017-11-21] MEDS ORDERED: FUROSEMIDE 20 MG TAB PO SCH (18:00)
== END 2017-11-21 15:20 | disposition home or self-care (01) | DRG 699 ==
LOC: E/R 16:45 → MS3 11-15 02:09 → MS2 11-15 23:45
PROVIDERS: ADMIT Family Medicine; ATTEND Internal Medicine
PROC: 0TB03ZX Excision of Right Kidney, Percutaneous Approach, Diagnostic (ICD-10-PCS; principal; 2017-11-20)
DX: N04.9 Nephrotic syndrome with unspecified morphologic changes (principal); B19.10 Unspecified viral hepatitis B without hepatic coma; I11.0 Hypertensive heart disease with heart failure; I50.30 Unspecified diastolic (congestive) heart failure; I10 Essential (primary) hypertension; Z95.5 Presence of coronary angioplasty implant and graft; Z68.28 Body mass index [BMI] 28.0-28.9, adult; I25.2 Old myocardial infarction; N20.0 Calculus of kidney
CPT/HCPCS: 36415; 71010; 76705; 76775; 77012; 80048; 80053; 80061; 80076; 81001; 81003; 82043; 82533; 82570; 82575; 82595; 82977; 83036; 83735; 83880; 84100; 84155; 84156; 84165; 84166; 84300; 84443; 84560; 85025; 85610; 85730; 86021; 86038; 86160; 86226; 86320; 86325; 86430; 86703; 86704; 86706; 86709; 86803; 87340; 88309; 93005; 93306; 93970; 96374; J1940; J2250; J3010